=== PATIENT | female | born 1955 | race Caucasian/White ===

== ENCOUNTER → 2017-11-06 11:23 | Outpatient (CLI) | payer OTHER, SELFPAY ==
[2017-11-06 11:39] LABS: Adenovirus,PCR Not Detected (NotDetected); Bordetella Pertussis Not Detected (NotDetected); Chlamydophila Pneumoniae, PCR Not Detected (NotDetected); Coronavirus 229E Not Detected (NotDetected); Coronavirus NL63 Not Detected (NotDetected); Coronavirus OC43 Not Detected (NotDetected); Coronovirus HKU1,PCR Not Detected (NotDetected); Human Metapneumovirus Not Detected (NotDetected); Influenza A, PCR Not Detected (NotDetected); Influenza AH1, 2009 Not Detected (NotDetected); Influenza AH1, PCR Not Detected (NotDetected); Influenza B, PCR Not Detected (NotDetected); Mycoplasma Pneumoniae, PCR Not Detected (NotDected); Parainfluenza 1, PCR Not Detected (NotDetected); Parainfluenza 2, PCR Not Detected (NotDetected); Parainfluenza 3, PCR Not Detected (NotDetected); Parainfluenza 4, PCR Not Detected (NotDetected); Respiratory Syncytial Virus Not Detected (NotDetected); Rhinovirus/Enterovirus Not Detected (NotDetected)
--- NOTE | 2017-11-06 11:46 | XR_ITS ---
XR chest 2V HISTORY: ITS.REASON: FEVER,COUGH ORDERING PHYSICIAN: Yeimi Barber PATIENT AGE: 62 years COMPARISON: None available FINDINGS: The cardiomediastinal silhouette and pulmonary vascularity are within normal limits. No lobar consolidation or collapse. There is hyperinflation with attenuation of the peripheral pulmonary vessels consistent with COPD/small airway disease. There is minimal atelectatic change in the left lung base.. No acute bony abnormalities. IMPRESSION: 1. COPD/small airway disease. 2. Minimal left basilar atelectasis
[2017-11-06 16:46] LABS: Influenza AH3,PCR Detected (NotDetected)
== END ==
PROVIDERS: PCP Nurse Practitioner Family; Visit Provider Nurse Practitioner Family
DX: R50.9 Fever, unspecified (principal); R05 Cough
CPT/HCPCS: 71046; 87486; 87581; 87633; 87798

== ENCOUNTER 2024-03-03 11:17 | Outpatient (CLI) | payer MEDICARE, OTHER, SELFPAY ==
--- NOTE | 2024-03-03 11:21 | XR_ITS ---
FINAL REPORT CLINICAL HISTORY: left sided sciaticax 1 yr COMPARISON: None FINDINGS: 3 views of the lumbar spine were obtained. There is no evidence of fracture. There is 9 mm of anterolisthesis of L5 on S1. Levoscoliosis is noted. There is moderate and severe degenerative change. Multilevel disc space narrowing is noted. No paraspinous soft tissue abnormalities identified. IMPRESSION: Moderate and severe degenerative change without acute bony abnormality. Reviewed, Interpreted and Dictated by Turner Santiago III, MD Transcribed by Trista Hughes Authenticated and [facility]
== END 2024-03-03 23:59 | disposition home or self-care (01) ==
LOC: RAD 11:19
PROVIDERS: PCP Family Medicine; Visit Provider Family Medicine
DX: M54.32 Sciatica, left side (principal)
CPT/HCPCS: 72100

== ENCOUNTER 2024-04-06 16:00 | Outpatient (RCR) | payer MEDICARE, OTHER, SELFPAY ==
--- NOTE | 2024-03-09 11:52 | HMH.PTOPEV ---
PT Outpatient Evaluation Rehab PT Outpatient Evaluation Start: 03/09/24 10:02 Freq: Status: Active Protocol: Document 03/09/24 10:02 PDESEROUX (Rec: 03/09/24 11:52 PDESEROUX [id number]) E-signed By Giovanni Aragon, PT Outpatient Therapy Subjective History Subjective History Pt. is a 68 year old female who presents to [facility] Outpatient Physical Therapy Services in [place] for the initial evaluation this date( 03/09/24) w/ c/o chronic and constant L-sided lumbar and LLE buttock P! and stiffness w / intermittent LLE numbness, tingling, and burning of insidious onset 1 year ago. Pt . reports she was walking for exercise with her friend when initial onset of symptoms began 1 year ago. Pt. reports initally noticing symptoms at a half mile, then quarter mile , currently states having constant symptoms w/ ambulation now. Pt. c/o intermittent LLE numbness/ tingling/burning initial onset 1 month ago. Pt. reports symptoms will progressively get worse as the day goes on. Pt. reports she is unable to ambulate for Health and Wellness, unable to stand and wash dishes/cook supper secondary to the symptomatic P !. Pt. reports having some symptom relief w/ stretches and MHP. Pt. reports having no symptom relief w/ OTC Tylenol . Pt. denies having any injections for current complaint. Recent diagnostic imaging(radiograph) of lumbar spine indicates DDD per pt. report. Pt. denies saddle paresthesia, denies ashley/ bladder dysfunction. Current medication list includes Letrozole, Atorvastatin, Magnesium, Vit. C, Vit. D3, and Pepcid PRN. PMH includes L Breast Lumpectomy in 2020, L- sided Embolization of Dural Fistula, Rhinoplasty, Uvulectomy, LLE Varicose Vein Stripping, Tubal Ligation and Inguinal Hernia Repair, x3 Natural Childbirth, borderline Osteopenia, Lumbar DDD, pre -diabetic. New diagnosis of cancer in past 12 No: see further details in PMH months? sentence above. Chief Complaint Pain,Stiff,Gives out/Unstable, Paresthesia,Weakness,Other Symptom Type Ache,Sharp,Dull,Stabbing, Burning,Numbness,Tingling, Shooting Symptoms Relieved By Rest/Positioning,Heat Symptoms Aggravated By Sitting,Standing,Bending/ Stooping,Physical Activity, Walking Prior Functional Limitations None Current Functional Limitations Lifting,Housework,Sleeping, Standing,Sitting,Recreation Activity,Walking,Bending/ Stooping Symptom Description Constant but Variable,Activity Dependent Level of pain today (0-10) 2 Pain scale - at its best (0-10) 1 Pain scale - at its worst (0-10) 7 Lumbopelvic Eval Posture Lumbar Spine Posture Standing Position Flattened,Fixed Scoliosis on ( L) Assistive device Assistive Devices None / NA Gait Observation General Gait Pattern Observation Antalgic Gait,Decrease Weight Bear (L),Decrease Stride Lngth (R) Palapation tenderness left lumbar spinal tenderness Yes: L4/L5 paraspinal tenderness No buttock tenderness Yes: piriformis mm. Lumbar/Sacral Palpation Findings Tenderness Lumbar/Sacral Palpation Overall Comment grade 4 +TTP to assessment above Accessory Movement L-spine Vertebrae Accessory Movements Central P/A [place],Left P/A that Elicit Symptoms [place] L4 left L5 left Range of Motion Lumbar Spine Active Flexion Range of 74 Motion (degrees) Lumbar Spine Active Extension Range of 18 Motion (degrees) Left Lumbar Spine Lateral Flexion Active 25 Range of Motion (degrees) Right Lumbar Spine Lateral Flexion 24 Active Range of Motion (degrees) Lumbar Spine ROM Limitations Soft Tissue Tightness,Pain Manual Muscle Test Right Knee Extension Strength Grade 5 Normal Knee Flexion Strength Grade 5 Normal Hip Flexion Strength Grade 5 Normal Hip Abduction Strength Grade 5 Normal Hip Adduction Strength Grade 5 Normal Hip External Rotation Strength Grade 5 Normal Hip Internal Rotation Strength Grade 5 Normal Hip Extension Strength Grade 5 Normal Gluteus Eddie Strength Grade 5 Normal Extensor Hallucis Longus Strength Grade 5 Normal Ankle Dorsiflexion Strength Grade 5 Normal Gastronemius/Soleus Strength Grade 5 Normal Left Knee Extension Strength Grade 4- Good- Knee Flexion Strength Grade 4- Good- Hip Flexion Strength Grade 4- Good- Hip Abduction Strength Grade 4- Good- Hip Adduction Strength Grade 4- Good- Hip External Rotation Strength Grade 4- Good- Hip Internal Rotation Strength Grade 4- Good- Hip Extension Strength Grade 4- Good- Gluteus Eddie Strength Grade 4- Good- Extensor Hallucis Longus Strength Grade 4- Good- Ankle Dorsiflexion Strength Grade 4- Good- Gastronemius/Soleus Strength Grade 4- Good- DTR Rt Patellar 2+ Lt Patellar 1+ Rt Gastroc/Soleus 2+ Lt Gastroc/Soleus 0 Altered Sensation Left LE Dermatome Level L4,L5 Comment vocalized decreased light touch sensation in above patterns of LLE compared to RLE Special Tests Lumbar Spine Screen Positive Hip Scouring (Quadrant) Test Negative Left Hip Giovanni (CHARLES) Test Negative Left Hip Piriformis Test Positive Left Sciatic Nerve Tension Test Positive Left Hip 90-90 Straight Leg Raise Test Positive Left Lumbar Long [place] Distraction Test/Manual Positive Traction Outpatient Therapy Assessment Impairments Problems/Impairmments Palpation Tenderness,Impaired Range of Motion,Impaired Strength,Impaired Gait Pattern ,Impaired Walking,Impaired Standing,Impaired Sitting, Impaired Household Care, Impaired Incline Stepping, Impaired Stepping on Uneven Surface,Impaired Recreational Activities,Subjective C/O Pain ,Impaired Self Care/Self Management Prognosis Rehab Potential Good Comment w/ HEP compliancy Clinical Impression Consistent with Diagnosis Yes Consistent with lumbar radiculopathy, L Short Term Goals Number of Weeks 2 Decreased Palpation Tenderness Yes: grade 1-2 +TTP to TTP assessment above Decrease Subjective C/O Pain Yes: worse:03/06 Patient to be Ind w/ HEP Yes Detention Goals Number of Weeks 4-6 Decreased Palpation Tenderness Yes: grade 1 +TTP to TTP assessment above Increase Range of Motion Yes: lumbar AROM WFL in all planes of motion w/o difficulty Increase Strength Yes: 4+ to 5/5 LLE MMT scores grossly Improve Gait Pattern without Assistive Yes Device Increase Ability to Walk Yes Increase Ability to Stand Yes Increase Ability to Sit Yes Improve Ability For Household Care Yes: Pt. will be able to dog and cat food cook, stand and wash dishes w/o difficulty Return to Recreational Activities Yes Improve Oswestry Score Yes Decrease Subjective C/O Pain Yes: worse:-12/07 Improve Self Care/Self Management Yes: Pt. will be able to sleep through the night w/o difficulty Patient to be Ind w/ Advanced HEP Yes Outpatient Therapy Plan of Care Treatment Plan May Include Therapeutic Exercise Including Home Yes Exercise Program Manual Therapy Techniques Yes Neuromuscular Re-education Yes Therapeutic Activities to Return to Yes Previous Functional/Work Level ADL/Self Care Education Yes Mechanical Traction Yes Dry Needling Yes Thermal Modalities Yes Electrical Stimulation Yes Ultrasound/Phonophoresis Yes Iontophoresis Yes Vasopneumatic Compression Pump Yes Massage Yes Eval/Re-Eval Yes Frequency Times per week 2 Duration Number of Weeks 4-6 Addendums This patient is a candidate for social No or vocational rehab? Patient/Guardian verbally acknowledges Yes understanding of treatment program and consents to further treatment? Patient/Guardian verbally acknowledges Yes understanding of diagnosis, prognosis and goals for treatment? Eval Complexity PT Charges 35251 - Moderate Complexity Shoulder/Elbow Eval Shoulder Objective Measurements Elbow Objective Measurements PHYSICIAN CERTIFICATION: I certify the specified therapy services for Cindy Francois are required, authorized, and reviewed every 30 days.
== END 2024-05-18 09:12 | disposition home or self-care (01) ==
LOC: PT 16:00
PROVIDERS: Visit Provider Family Medicine
DX: M54.32 Sciatica, left side; M54.50 Low back pain, unspecified
CPT/HCPCS: 97012; 97014; 97110; 97140; 97163; G0283

== ENCOUNTER 2024-04-17 08:39 | Outpatient (CLI) | payer MEDICARE, OTHER, SELFPAY ==
--- NOTE | 2024-04-17 08:41 | MR_ITS ---
FINAL REPORT TECHNIQUE: Multiplanar MR without gadolinium enhancement CLINICAL HISTORY: low back pain with sciatica COMPARISON: None FINDINGS: Sagittal images show normal vertebral height. There is grade 1 spondylolisthesis of L5 on S1, likely secondary to facet arthropathy. There is minimal bone marrow edema in the L5 pedicles bilaterally, more prominent on the right than on the left, which may reflect stress reaction. L1-2: A small annular bulge is present without evidence of central canal stenosis or neural foraminal narrowing. L2-3: Spondylosis and an annular bulge are present, with moderate right and mild left neural foraminal narrowing. L3-4: Moderate annular bulge is present with facet arthropathy. There is mild central canal stenosis and mild bilateral neural foraminal narrowing. L4-5: A moderate annular bulge is present, asymmetric to the left. There is moderate facet arthropathy, moderate central canal stenosis, and bilateral neural foraminal narrowing. L5-S1: A small annular bulge is present with moderate facet arthropathy and moderate bilateral neural foraminal narrowing. IMPRESSION: Multilevel lumbar degenerative changes present, most severe at the L4-5 level. Reviewed, Interpreted and Dictated by Jarrod Mccormick MD Transcribed by Marisol Coello Authenticated and [facility]
== END 2024-04-17 23:59 | disposition home or self-care (01) ==
LOC: RAD 08:41
PROVIDERS: PCP Family Medicine; Visit Provider Family Medicine
DX: M54.30 Sciatica, unspecified side (principal); M54.50 Low back pain, unspecified
CPT/HCPCS: 72148

== ENCOUNTER 2024-07-14 11:00 | Outpatient (RCR) | payer MEDICARE, OTHER, SELFPAY | END 2024-07-28 11:30 | disposition home or self-care (01) | LOC: PT 11:00 | PROVIDERS: Visit Provider Anesthesiology Pain Medicine | DX: M54.16 Radiculopathy, lumbar region (principal) | CPT/HCPCS: 20560; 97110; 97140; 97163; 97530 ==

== ENCOUNTER 2024-08-21 13:00 | Outpatient (CLI) | payer MEDICARE, OTHER, SELFPAY ==
--- NOTE | 2024-08-21 13:03 | XR_ITS ---
PROCEDURE INFORMATION: Exam: XR Right Hand Exam date and time: 08/21/2024 1:05 PM Age: 69 years old Clinical indication: Pain; Hand; Right; Additional info: Right middle finger pip joint trigger TECHNIQUE: Imaging protocol: Radiologic exam of the right hand. Views: 3 or more views. COMPARISON: No relevant prior studies available. FINDINGS: Bones/joints: . Very subtle small avulsion fracture off the dorsal aspect of the PIP joint of the long finger. It measures 1 mm. Joint space narrowing in the PIP joints and DIP joints of the fingers and IP joint of the thumb consistent with degenerative changes. There is no evidence of acute fracture.There is no evidence of malalignment or dislocation. Soft tissues: Unhealed avulsion fracture off the dorsal lip of the distal phalanx of the long finger. This is seen best on the lateral. There is additional avulsion fracture off the volar aspect of the distal phalanx of the long finger. It appears more chronic. These avulsion fractures involve the D IP joint IMPRESSION: 1. Unhealed avulsion fracture off the dorsal lip of the distal phalanx of the long finger. This is seen best on the lateral. There is additional avulsion fracture off the volar aspect of the distal phalanx of the long finger. It appears more chronic. These avulsion fractures involve the D IP joint . 2. Very subtle small avulsion fracture off the dorsal aspect of the PIP joint of the long finger. It measures 1 mm. 3. Joint space narrowing in the PIP joints and DIP joints of the fingers and IP joint of the thumb consistent with degenerative changes.
== END 2024-08-21 23:59 | disposition home or self-care (01) ==
LOC: RAD 13:02
PROVIDERS: PCP Family Medicine; Visit Provider Family Medicine
DX: M65.30 Trigger finger, unspecified finger (principal)
CPT/HCPCS: 73130

== ENCOUNTER 2025-08-04 08:26 | Outpatient (CLI) | payer MEDICARE, OTHER, SELFPAY ==
--- OUTSIDE RECORDS SUMMARY | 2025-06-24 11:00 | XMS_ITS | Encounter Summary ---
Author Organization [employer] ([place], [place], [place], [place]) Address [address] [place] [address] Care Team Providers Care Applications Instructor Name Role Phone Unique Desai Primary Care Provider Reason for Referral * Mammography (Routine) - Closed Specialty Diagnoses / Procedures Referred By Leigh Ann t Referred To Contact Radiology Diagnoses History of breast cancer Procedures MM digital mammo diagnostic with delta bilateral MM digital mammo diagnostic bilateral Arnold Pelayo MD Phone: tel: fax: [address] [phone] Phone: tel: fax: Referral ID Status Reason Start Date Expiration Date Visits Re quested Visits Authorized [id number] Closed 06/24/2025 06/24/2026 1 1 * Mammography (Routine) - Closed Specialty Diagnoses / Procedures Referred By Contjaime t Referred To Contact Radiology Diagnoses History of breast cancer Procedures MM digital mammo diagnostic with delta bilateral MM digital mammo diagnostic bilateral Arnold Pelayo MD Phone: tel: fax: [address] [phone] Phone: tel: fax: Referral ID Status Reason Start Date Expiration Date Visits Re quested Visits Authorized [id number] Closed 06/24/2025 06/24/2026 1 1 Reason for Visit * Mammography (Routine) - Closed Specialty Diagnoses / Procedures Referred By Contac t Referred To Contact Radiology Diagnoses History of breast cancer Procedures MM digital mammo diagnostic with delta bilateral MM digital mammo diagnostic bilateral Arnold Pelayo MD Phone: tel: fax: [address] [phone] Phone: tel: fax: Referral ID Status Reason Start Date Expiration Date Visits Re quested Visits Authorized [id number] Closed 06/24/2025 06/24/2026 1 1 Encounter Details Date Type Department Care Team (Latest Contact Info) Description 06/24/2025 11:00 AM EDT - 06/24/2025 11:59 PM EDT Hospital Encounter [address] [address] [facility], Provider Not In The System, [place] [address] History of breast cancer (Primary Dx) Discharge Disposition: Home or Self Care Social History Tobacco Use Types Packs/Day Years Used Date Smoking Tobacco: Never Smokeless Tobacco: Never Alcohol Use Standard Drinks/Week Comments Yes 1 (1 standard drink = 0.6 oz pur e alcohol) daily Family and Community Support Answer Amos e Recorded Help with Day to Day Activities Not on file 11/08/2023 Feeling Lonely or Isolated Not on file 11/08 Educational Attainment Answer Date Chaim rded Speak language other than Bruneian at home Not on file 11/08/2023 Want help with school or training Not on file 11/08/2023 Substance Use Answer Date Recorded Used prescription meds for non-medical reasons N ot on file 11/08/2023 Used illegal drugs past 12 months Not on file 11/08/2023 Comments No Sex and Gender Information Value Date Recorded Sex Assigned at Female 02/07/2024 3:45 PM CDT Legal Sex Female 6:13 PM CDT Gender Identity Female 02/07/2024 3:45 PM CDT Sexual Orientation Straight 02/07/2024 3: 45 PM CDT documented as of this encounter Medications at Time of Discharge acetaminophen (TYLENOL) 650 MG CR tablet Take 1 tablet (650 mg total) by mouth. ascorbic acid, vitamin C, (VITAMIN C) 500 MG tablet Take 1 tablet (500 mg total) by mouth. calcium carbonate/vitami n D3 (CALTRATE 600 + D ORAL) 10/15/2023 calcium carbonate/vitami n D3 (CALTRATE 600 + D ORAL) Take by mouth. cholecalciferol (VITAMIN D3) 25 mcg (1,000 unit) tablet Take 1 tablet (1,000 Units total) by mouth. DULoxetine (CYMBALTA) 20 MG capsule Take 1 capsule (20 mg total) by mouth daily. 06/03/2024 letrozole (FEMARA) 2.5 mg tablet TAKE 1 TABLET DAILY 90 tablet 3 01/06/2025 magnesium gluconate (MAGONATE) 27.5 mg magne- sium (500 mg) tablet Take 1 tablet (500 mg total) by mouth 2 (two) times daily. magnesium gluconate, bulk, Powd Take 400 mg by mouth. melatonin 3 mg tablet Take 1 tablet (3 mg total) by mouth Pt takes 1.5tab at hs. turmeric, bulk, 95 % Powd 09/27/2023 UNKNOWN Take 1 tablet by mouth daily Med Name: Nerve health supplement ( folic acid, B12, B6). omeprazole (PriLOSEC) 10 MG capsule Take 1 capsule (10 mg total) by mouth daily. omeprazole (PriLOSEC) 40 MG capsule Take 1 capsule (40 mg total) by mouth Daily (0600). documented as of this encounter Plan of Treatment Upcoming Encounters Date Type Department Care Team (Late st Contact Info) Description 06/27/2026 1:00 PM EDT Appointment [facility] Breast Imaging [address] [place] [phone] Jamarcus Issa MD [address] [facility] [address] [place] [address] 06/30/2026 10:00 AM EDT Office Visit [facility] [place] [address] [place] [address] Jamarcus Issa MD [address] [facility] [address] [place] [address] documented as of this encounter Procedures Procedure Name Priority Date/Time Associated Diagnosis Comments MM DIGITAL MAMMO DIAGNOSTIC WITH DELTA BILATERAL Routine 06/24/2025 11:51 AM EDT History of breast cancer documented in this encounter Results * MM digital mammo diagnostic with delta bilateral (06/24/2025 11:51 AM EDT) Anatomical Region Laterality Modality Breast Bilateral Mammography 06/24/2025 12:0 2 PM EDT Impressions 06/24/2025 12:04 PM EDT Stable mammographic evaluation without evidence of malignancy Nothing seen by mammogram or ultrasound to explain the patient's breast pain/tenderness any: This will have to managed clinically.. BI-RADS category 2: Benign RECOMMENDATION: Bilateral diagnostic mammogram 1 year. The results and recommendations were discussed with the patient on the day of her appointment. In addition, a written report in lay terms was given to the patient. Patient information entered into a reminder system with a target due date for the next mammogram. At our facility, a blackfeet marker is positioned over a visible skin lesion and a linear marker is used to indicate a scar. A triangular marker is placed on a self reported palpable finding. Mammography does not detect approximately 10-15% of breast cancers. An annual clinical breast exam by the patient's breast care physician and regular monthly self breast exams by the patient are integral parts of breast cancer screening. A normal mammogram does not completely exclude the presence of breast cancer, especially if there is an abnormal finding on physical exam. When clinically indicated, a biopsy should not be deferred because of a normal mammogram report. : 1955 Images reviewed, interpreted, and dictated by Yuki Darnell MD Narrative 06/24/2025 12:04 PM EDT MAMMOGRAM DIAGNOSTIC BILATERAL HISTORY: Status post lumpectomy upper-outer quadrant left breast and September 2021, no current problems. FAMILY HISTORY: No family history. COMPARISON: Previous exams back to 2021. PROCEDURE: MM DIGITAL MAMMO DIAGNOSTIC WITH DELTA BILATERAL CAD was utilized during interpretation. FINDINGS: The breasts are heterogeneously dense, which may obscure small masses.No spiculated mass, suspicious calcifications or new area of architectural distortion is present. Post lumpectomy change again noted upper outer quadrant left breast with one associated metallic surgical clips. 2 additional surgical clips noted in the left axilla. Findings are stable. Procedure Note Yuki Darnell MD - 06/24/2025 MAMMOGRAM DIAGNOSTIC BILATERAL HISTORY: Status post lumpectomy upper-outer quadrant left breast and September 2021, no current problems. FAMILY HISTORY: No family history. COMPARISON: Previous exams back to 2021. PROCEDURE: MM DIGITAL MAMMO DIAGNOSTIC WITH DELTA BILATERAL CAD was utilized during interpretation. FINDINGS: The breasts are heterogeneously dense, which may obscure small masses.No spiculated mass, suspicious calcifications or new area of architectural distortion is present. Post lumpectomy change again noted upper outer quadrant left breast with one associated metallic surgical clips. 2 additional surgical clips noted in the left axilla. Findings are stable. IMPRESSION: Stable mammographic evaluation without evidence of malignancy Nothing seen by mammogram or ultrasound to explain the patient's breast pain/tenderness any: This will have to managed clinically.. BI-RADS category 2: Benign RECOMMENDATION: Bilateral diagnostic mammogram 1 year. The results and recommendations were discussed with the patient on the day of her appointment. In addition, a written report in lay terms was given to the patient. Patient information entered into a reminder system with a target due date for the next mammogram. At our facility, a blackfeet marker is positioned over a visible skin lesion and a linear marker is used to indicate a scar. A triangular marker is placed on a self reported palpable finding. Mammography does not detect approximately 10-15% of breast cancers. An annual clinical breast exam by the patient's breast care physician and regular monthly self breast exams by the patient are integral parts of breast cancer screening. A normal mammogram does not completely exclude the presence of breast cancer, especially if there is an abnormal finding on physical exam. When clinically indicated, a biopsy should not be deferred because of a normal mammogram report. : 1955 Images reviewed, interpreted, and dictated by Yuki Darnell MD Arnold Pelayo MD IMG MAMMOGRAPHY ORDERABLES F inal Result documented in this encounter Visit Diagnoses Diagnosis History of breast cancer- Primary Personal history of malignant neoplasm of breast documented in this encounter Care Teams Applications Instructor Relationship Specialty Start Date End Date Unique Desai [address] [facility] [place] [phone] PCP - General 06/10/23 documented as of this encounter
--- OUTSIDE RECORDS SUMMARY | 2025-06-24 11:45 | XMS_ITS | Encounter Summary ---
Author Organization [employer] ([place], [place], [place], [place]) Address [address] [place] [address] Care Team Providers Care Company Pilot Name Role Phone Unique Desai Primary Care Provider [phone] Reason for Visit * Reason Comments Follow-up DIAGNOSTIC MAMMOGRAM Encounter Details Date Type Department Care Team (Late st Contact Info) Description 06/24/2025 11:45 AM EDT Office Visit [facility] [address] [facility] [address] [place] [id number] [facility], Provider Not In The System, [place] [address] Arnold Pelayo MD [address] [facility] [address] [place] [address] History of breast cancer (Primary Dx) Social History Tobacco Use Types Packs/Day Years Used Date Smoking Tobacco: Never Smokeless Tobacco: Never Tobacco Cessation:Counseling Given: Not Answered Alcohol Use Standard Drinks/Week Comments Yes 1 (1 standard drink = 0.6 oz pur e alcohol) daily Family and Community Support Answer Amos e Recorded Help with Day to Day Activities Not on file 11/08/2023 Feeling Lonely or Isolated Not on file 11/08 Educational Attainment Answer Date Chaim rded Speak language other than Amharic at home Not on file 11/08/2023 Want [...] PM CDT documented as of this encounter Progress Notes * Arnold Pelayo MD - 06/24/2025 11:45 AM EDT Subjective: Cindy Francois is a 70 y.o. female. Chief Complaint Patient presents with Follow-up DIAGNOSTIC MAMMOGRAM I have reviewed and/or updated the following: HPI Ms. Francois is now 5 years status post left lumpectomy and sentinel node biopsy. She had a bilateral mammogram today which was unremarkable. I reviewed the images. She continues to do well and remains on letrozole. Review of Systems All other systems reviewed and are negative. Objective: LMP (LMP Unknown) Physical Exam Breast exam reveals well-healed lumpectomy incision(s) on the left without evidence of recurrence. There are no new masses or adenopathy. Examination of the right breast is unremarkable. Assessment: 1. History of breast cancer Plan: I am pleased that she continues to do well. Unless she develops any new problems or concerns I can see her back as needed. She will need to return to the breast center in 1 year for her next bilateral screening mammogram. No follow-ups on file. documented in this encounter Plan of Treatment Upcoming Encounters Date Type Department Care Team (Late st Contact Info) Description 06/27/2026 1:00 PM EDT Appointment [facility] [address] [place] [address] Jamarcus Issa MD [address] [facility] [address] [place] [address] 06/30/2026 10:00 AM EDT Office Visit [facility] [place] [address] [facility] [address] [place] [address] Jamarcus Issa MD [address] [facility] [address] [place] [address] documented as of this encounter Visit Diagnoses Diagnosis History of breast cancer- Primary Personal history of malignant neoplasm of breast documented in this encounter Care Teams Company Pilot Relationship Specialty Start Date End Date Unique Desai [address] [place] [address] [place] [address] PCP - General 06/10/23 documented as of this encounter
--- OUTSIDE RECORDS SUMMARY | 2025-06-30 10:15 | XMS_ITS | Encounter Summary ---
Author Organization [employer] ([place], [place], [place], [place]) Address [address] [place] [address] Care Team Providers Care Software Analyst Name Role Phone GuevaraAparna serna Primary Care Provider [phone] Reason for Referral * Mammography (Routine) - Authorized Specialty Diagnoses / Procedures Referred By Leigh Ann jackson Referred To Contact Radiology Diagnoses Malignant neoplasm of upper-outer quadrant of left breast in female, estrogen receptor positive (HCC) Procedures MM digital mammo screen with delta bilateral Jamarcus Issa MD [address] [facility] [address] [place] [address] Phone: tel: fax: [facility] [address] [place] [address] Phone: tel: fax: Referral ID Status Reason Start Date Expiration Date V isits Requested Visits Authorized [id number] Authorized 06/30/2025 06/30/2026 1 1 Reason for Visit * Reason Comments Follow-up Breast Cancer Encounter Details Date Type Department Care Team (Late st Contact Info) Description 06/30/2025 10:15 AM EDT Office Visit [facility] [place] [address] [place] [address] Jamarcus Issa MD [address] [facility] [address] [place] [address] Malignant neoplasm of upper-outer quadrant of left breast in female, estrogen receptor positive (HCC) (Primary Dx) Social History Tobacco Use Types [...] Date Chaim rded Speak language other than Sudanese at home Not on file 11/08/2023 Want [...] PM CDT documented as of this encounter Last Filed Vital Signs Vital Sign Reading Time Taken Comments Blood Pressure 121/62 06/30/2025 10:15 AM EDT Pulse 64 06/30/2025 10:15 AM EDT Temperature 36.7 C (98 F) 06/30/2025 10:15 AM EDT Respiratory Rate 18 06/30/2025 10:15 AM EDT Oxygen Saturation 99% 06/30/2025 10:15 AM EDT Inhaled Oxygen Concentration - - Weight 61.9 kg (136 lb 6.4 oz) 06/30/2025 10:15 AM EDT Height 170.2 cm (5' 7 ) 06/30/2025 10:15 AM EDT Body Mass Index 21.36 06/30/2025 10:15 AM EDT documented in this encounter Progress Notes * Jamarcus Issa MD - 06/30/2025 10:15 AM EDT Chief Complaint: History of Present Illness: Cindy Francois is a 70 y.o. female who presents today for follow up of breast cancer. She is nearing 4 years from her diagnosis. She denies any new issues. She has had no change in the left breast.She has had recent mammogram. She is tolerating the letrozole well without new complaints Past Medical History: Diagnosis Date Breast cancer (HCC) Hypercholesterolemia Past Surgical History: Procedure Laterality Date CEREBRAL EMBOLIZATION 11/2020 dura fistula nasal rhinoplasty UVULECTOMY varicose vein surgery Cancer History: Oncology History Malignant neoplasm of upper-outer quadrant of left breast in female, estrogen receptor positive (HCC) 11/23/2022 Initial Diagnosis Malignant neoplasm of upper-outer quadrant of left breast in female, estrogen receptor positive (HCC) 08/2021 Lumpectomy of 1.1 cm primary and negative SN Letrozole 10/2021- RT 15 fractions 11/202106/09/2023 Cancer Staged Staging form: Breast, AJCC 8th Edition, Clinical: Stage IA (cT1c, cN0, cM0, G1, ER+, NE+, HER2-) - Signed by Jamarcus Issa MD on 06/09/2023 Allergies: Metoprolol Tartrate and Sulfa (Sulfonamide Antibiotics) Medications: Current Outpatient Medications on File Prior to Visit Medication Sig Dispense Refill acetaminophen (TYLENOL) 650 MG CR tablet Take 1 tablet (650 mg total) by mouth. ascorbic acid, vitamin C, (VITAMIN C) 500 MG tablet Take 1 tablet (500 mg total) by mouth. calcium carbonate/vitamin D3 (CALTRATE 600 + D ORAL) Take by mouth. DULoxetine (CYMBALTA) 20 MG capsule Take 1 capsule (20 mg total) by mouth daily. letrozole (FEMARA) 2.5 mg tablet TAKE 1 TABLET DAILY 90 tablet 3 magnesium gluconate (MAGONATE) 27.5 mg magne- sium (500 mg) tablet Take 1 tablet (500 mg total) by mouth 2 (two) times daily. melatonin 3 mg tablet Take 1 tablet (3 mg total) by mouth Pt takes 1.5tab at hs. turmeric, bulk, 95 % Powd UNKNOWN Take 1 tablet by mouth daily Med Name: Nerve health supplement ( folic acid, B12, B6). calcium carbonate/vitamin D3 (CALTRATE 600 + D ORAL) cholecalciferol (VITAMIN D3) 25 mcg (1,000 unit) tablet Take 1 tablet (1,000 Units total) by mouth. magnesium gluconate, bulk, Powd Take 400 mg by mouth. [DISCONTINUED] omeprazole (PriLOSEC) 10 MG capsule Take 1 capsule (10 mg total) by mouth daily. [DISCONTINUED] omeprazole (PriLOSEC) 40 MG capsule Take 1 capsule (40 mg total) by mouth Daily (0600). No current facility-administered medications on file prior to visit. Review of Systems: Review of Systems All other systems reviewed and are negative. Vitals: Vitals: 06/30/25 1015 BP: 121/62 Pulse: 64 Resp: 18 Temp: 98 ??F (36.7 ??C) TempSrc: Temporal Artery SpO2: 99% Weight: 61.9 kg (136 lb 6.4 oz) Height: 1.702 m (5' 7 ) Physical Exam: Physical Exam Vitals reviewed. Constitutional: Appearance: Normal appearance. HENT: Head: Normocephalic and atraumatic. Mouth/Throat: Mouth: Mucous membranes are moist. Pharynx: Oropharynx is clear. Eyes: Extraocular Movements: Extraocular movements intact. Conjunctiva/sclera: Conjunctivae normal. Pupils: Pupils are equal, round, and reactive to light. Neck: Comments: No cervical supraclavicular or axillary adenopathy Cardiovascular: Rate and Rhythm: Normal rate and regular rhythm. Pulses: Normal pulses. Heart sounds: Normal heart sounds. Pulmonary: Effort: Pulmonary effort is normal. Breath sounds: Normal breath sounds. Comments: No dullness to percussion in the lung bases. She has a well-healed incision in the outer lower quadrant of the left breast with no induration mass or lesion. Right breast without palpable abnormalities Abdominal: General: Abdomen is flat. Bowel sounds are normal. Palpations: Abdomen is soft. Comments: No hepatomegaly below the right costal margin Musculoskeletal: General: Normal range of motion. Cervical back: Normal range of motion and neck supple. Comments: No areas of bone pain Neurological: General: No focal deficit present. Mental Status: She is alert. Mental status is at baseline. Comments: No deficits Relevant Results: No visits with results within 21 Day(s) from this visit. Latest known visit with results is: Historic Encounter on 10/23/2021 Component Date Value Ref Range Status SARS-CoV-2 ([id number]) 10/23/2021 Negative Negative Final Comment: Testing was performed using RT-PCR methodology approved for use under FDA Emergency Use Authorization only. Negative results do not preclude infection with the SARS-CoV-2 virus and should not be used as the sole basis of a patient treatment or public health decisions. Negative results must be considered in the context of an individual's recent exposures, history, and presence of clinical signs/symptoms. Follow-up testing should be performed according to the current CDC recommendations. Performing Lab: 10/23/2021 [facility] Max Final Reason for Testing 10/23/2021 Surveillance Intake Final First Test 10/23/2021 No Final Employed in Healthcare 10/23/2021 Unknown Final Symptomatic as defined by CDC 10/23/2021 No Final Resident in congregate setting 10/23/2021 Unknown Final 10/23/2021 No Final Hospitalized 10/23/2021 No Final ICU 10/23/2021 No Final MM digital mammo diagnostic with delta bilateral Result Date: 06/24/2025 MAMMOGRAM DIAGNOSTIC BILATERAL HISTORY: Status post lumpectomy upper-outer quadrant left breast andDecember 2020, no current problems. FAMILY HISTORY: No family [...] in the left axilla. Findings are stable. Stable mammographic evaluation without evidence of malignancy Nothing seen by mammogram or ultrasound to explain the patient's breast pain/tenderness any: This will have to managed clinically.. BI-RADS category 2: Benign RECOMMENDATION: Bilateral diagnostic mammogram 1 year. The results and recommen dations were discussed with the patient on the day of her appointment. In addition, a written report in lay terms was given to the patient. Patient information entered into a reminder system with a target due date for the next mammogram. At our facility, a [place] marker is positioned over a visibleskin lesion and a linear marker is used to indicate a scar. A triangular marker is placed on a selfreported palpable finding. Mammography does not detect approximately [...] interpreted, and dictated by Yuki Darnell MD Cancer Staging Malignant neoplasm of upper-outer quadrant of left breast in female, estrogen receptor positive (HCC) Staging form: Breast, AJCC 8th Edition - Clinical: Stage IA (cT1c, cN0, cM0, G1, ER+, NE+, HER2-) - Signed by Jamarcus Issa MD on 06/09/2023 Plan: Her mammogram was great. She will continue on the letrozole. I will see her in a year. I haveanswered her questions. Overall she is doing great Signed: Electronically signed by Jamarcus Issa MD 06/30/25 12:40 PM EDT APARNA DESAI documented in this encounter Plan of Treatment Upcoming Encounters Date Type Department Care Team (Late st Contact Info) Description 06/27/2026 1:00 PM EDT Appointment [facility] [address] [place] [address] [place] [address] [place] [address] 06/30/2026 10:00 AM EDT Office Visit [facility] [place] [address] [place] [address] Jamarcus Issa MD [address] [facility] [address] [place] [address] Scheduled Orders Name Type Priority Associated Diagnoses Orde r Schedule MM digital mammo screen with delta bilateral Imaging Routine Malignant neoplasm of upper-outer quadrant of left breast in female, estrogen receptor positive (HCC) Expected: 06/30/2025, Expires: 07/30/2026 documented as of this encounter Visit Diagnoses Diagnosis Malignant neoplasm of upper-outer quadrant of left breast in female, estrogen receptor positive (HCC)- Primary documented in this encounter Care Teams Software Analyst Relationship Specialty Start Date End Date Aparna Desai [address] [facility] [place] [address] PCP - General 06/10/23 documented as of this encounter
[2025-08-04 19:41] LABS: Hematocrit 41.7 % (37.0-47.0); Hemoglobin 13.1 g/dL (12.2-16.2); Immature Granulocytes % 0.2 %; Mean Corpuscular HGB Conc 31.4 g/dL (31.8-35.4); Mean Corpuscular Hemoglobin 30.0 pg (27.0-31.2); Mean Corpuscular Volume 95.6 fl (81-99); Nucleated Red Blood Cells % 0 %; Platelet Count 257 K/mm3 (142-424); Red Blood Count 4.36 M/mm3 (4.20-5.40); Red Cell Distribution Width-SD 46.8 fL; White Blood Count 5.6 K/mm3 (4.8-10.8)
[2025-08-04 21:05] LABS: Alanine Aminotransferase 16 U/L (12-78); Albumin Level 4.4 g/dl (3.5-5.0); Albumin/Globulin Ratio 1.8 (1.1-1.8); Alkaline Phosphatase 75 U/L (38-126); Anion Gap 15.7 mEq/L (5-15); Aspartate Amino Transferase 24 U/L (14-36); Bilirubin,Total 0.8 mg/dl (0.2-1.3); Blood Urea Nitrogen 20 mg/dl (7-17); Calcium 9.7 mg/dl (8.4-10.2); Carbon Dioxide 29 mmol/L (22.0-30.0); Chloride 99 mmol/L (98-107); Cholesterol 197 mg/dl (140-200); Creatinine,Serum 0.80 mg/dl (0.52-1.04); Estimated Glomerular Filt Rate 71 ml/min (>60); GFR (African American) 86 ML/MIN (>60); Globulin 2.5 g/dL (1.3-3.2); Glucose 66 mg/dl (74-100); HDL Cholesterol 58 mg/dl (40-60); Magnesium 2.6 mg/dl (1.6-2.3); Potassium 4.7 mmoL/L (3.5-5.1); Sodium 139 mmol/L (136-145); Total Protein,Serum 6.9 g/dl (6.3-8.2); Triglycerides 101 mg/dl (30-150)
[2025-08-04 21:35] LABS: Thyroid Stimulating Hormone 2.86 uIU/mL (0.465-4.68)
[2025-08-04 23:48] LABS: Iron 100 ug/dL (37-170)
[2025-08-04 23:57] LABS: Total Iron Binding Capacity 316 ug/dL (265-497)
[2025-08-05 00:24] LABS: Ferritin 85.6 ng/ml (11.1-264)
--- OUTSIDE RECORDS SUMMARY | 2025-08-06 01:25 | XMS_ITS | Clinical Summary ---
Author Organization [employer] ([place], [place], [place], [place]) Address [address] [place] [address] Care Team Providers Care Ios Developer Name Role Phone Unique Desai Primary Care Provider Allergies Active Allergy Reactions Criticality Noted Date Comments Metoprolol Tartrate 11/23/2022 Severe bradycardia Sulfa (Sulfonamide Antibiotics) Rash Low 10/29 Medications acetaminophen (TYLENOL) 650 MG CR tablet Take 1 tablet (650 mg total) by mouth. Active magnesium gluconate, bulk, Powd Take 400 mg by mouth. Active ascorbic acid, vitamin C, (VITAMIN C) 500 MG tablet Take 1 tablet (500 mg total) by mouth. Active cholecalciferol (VITAMIN D3) 25 mcg (1,000 unit) tablet Take 1 tablet (1,000 Units total) by mouth. Active melatonin 3 mg tablet Take 1 tablet (3 mg total) by mouth Pt takes 1.5tab at hs. Active calcium carbonate/vitam in D3 (CALTRATE 600 + D ORAL) 3 Active DULoxetine (CYMBALTA) 20 MG capsule Take 1 capsule (20 mg total) by mouth daily. 4 Active turmeric, bulk, 95 % Powd 3 Active calcium carbonate/vitam in D3 (CALTRATE 600 + D ORAL) Take by mouth. A ctive magnesium gluconate (MAGONATE) 27.5 mg magne- sium (500 mg) tablet Take 1 tablet (500 mg total) by mouth 2 (two) times daily. Active UNKNOWN Take 1 tablet by mouth daily Med Name: Nerve health supplement ( folic acid, B12, B6). Active letrozole (FEMARA) 2.5 mg tablet TAKE 1 TABLET DAILY 90 tablet 3 Active Active Problems Problem Noted Date Diagnosed Date Malignant neoplasm of upper- outer quadrant of left breast in female, estrogen receptor positive 11/23/2022 Cancer Staging:Clinical:Stage IA(cT1c, cN0, cM0, G1, ER+, LA+, HER2-) - Signed by Jamarcus Issa MD on 06/09/2023 Encounters Date Type Department Care Team Description 06/30/2025 10:15 AM EDT Office Visit [facility] - [address] [place] [address] Jamarcus Issa MD Malignant neoplasm of upper-outer quadrant of left breast in female, estrogen receptor positive (HCC) (Primary Dx) 06/30/2025 Outside Orders [facility] Central Scheduling [address] [place] [id number] Jamarcus Issa MD 06/30/2025 Travel 06/24/2025 11:45 AM EDT Office Visit [facility] [address] [address] [facility], Provider Not In The System, Arnold Almodovar MD History of breast cancer (Primary Dx) 06/24/2025 11:00 AM EDT - 06/24/2025 11:59 PM EDT Hospital Encounter [facility] [address] [facility] [address] [place] [address] [facility], Provider Not In The System, History of breast cancer (Primary Dx) Discharge Disposition: Home or Self Care 06/24/2025 Travel from Last 3 Months Family History Medical History Relation Name Comments Colon cancer Father Brain cancer Mother Uterine cancer Mother Relation Name Status Comments Father Mother Social History Tobacco Use Types Packs/Day Years [...] Date Chaim rded Speak language other than [place] Islander at home Not on file 11/08/2023 Want [...] Orientation Straight 02/07/2024 3: 45 PM CDT Last Filed Vital Signs Vital Sign Reading [...] Mass Index 21.36 06/30/2025 10:15 AM EDT Plan of Treatment Upcoming Encounters Date Type Department Care Team (Late st Contact Info) Description 06/27/2026 1:00 PM EDT [facility]ointment [facility] [address] [place] [address] [facility]a [facility] [address] [facility] [address] [place] [address] 06/30/2026 10:00 AM EDT Office Visit [facility] [place] [address] [place] [address] Jamarcus Issa MD [address] [facility] [address] [place] [address] Health Maintenance Due Date Last Done Comments Medicare Initial AWV [id number] 10/29/1901 CT Colonography 1955 Colonoscopy 1955 Colorectal Cancer Screening 1955 DXA SCAN 1955 FOBT/FIT 1955 Fit-DNA (Cologuard) 1955 Sigmoidoscopy 1955 Depression Screening (12+) 1967 Hepatitis C Screening 1973 DTAP/TDAP/TD VACCINES (1 - Tdap) 1974 Shingles Vaccine (Zoster) (1 of 2) 2005 Respiratory Syncytial Virus (RSV) Adult or (1 - Risk 60-74 years 1-dose series) 2015 Pneumococcal 50+ years (2 of 2 - PCV) 08/15/2022 08/15/2021 Falls Risk Screening 10/28/2024 COVID-19 VACCINE (6 - 2024-2 6 season) 2025 07/17/2022, 03/06/2022, 09/28/2021, Additional history exists Influenza Vaccine (#1) 2025 , 08/25/2020, 10/03/2018 Tobacco Cessation Counseling and Screening (12+) 06/30/2026 06/30/2025 Breast Cancer Screening 06/24/2027 06/24/20, 06/18/2024, 06/10/2023 Procedures Procedure Name Priority Date/Time Associated Diagnosis Comments MM DIGITAL MAMMO DIAGNOSTIC WITH DELTA BILATERAL Routine 06/24/2025 11:51 AM EDT History of breast cancer from Last 3 Months Results * MM digital mammo diagnostic with [...] the next mammogram. At our facility, a [place] marker is positioned over a visible skin [...] the next mammogram. At our facility, a [place] marker is positioned over a visible skin [...] MD IMG MAMMOGRAPHY ORDERABLES F inal Result from Last 3 Months Insurance MEDICARE PART A B [facility] Advance Directives For more information, please contact: [phone] Documents on File Type Date Recorded Patient Special Ed Assistant Expl anation Advance Directives and Livin g Will 06/24/2025 11:10 AM Care Teams Ios Developer Relationship Specialty Start Date End Date Unique Desai [address] [place] [address] Dr. [place], [place] [address] PCP - General 06/10/23
--- OUTSIDE RECORDS SUMMARY | 2025-08-06 01:25 | XMS_ITS | Encounter Summary ---
[facility] Address [address] [place] [address] Care Team Providers Care Senior Java Developer Name Role Phone Lupillo Ramos MD Primary Care Provider [phone] Reason for Visit * Reason Comments Med Refill Encounter Details Date Type Department Care Team (Late st Contact Info) Description 06/15/2025 Refill [facility] [address] [address] Trista Centeno, SPOOL CLEANER HAND [address] [place] [address] Lumbar radiculopathy Social History Tobacco Use Types Packs/Day Years Used Date Smoking Tobacco: Never Smokeless Tobacco: Never Alcohol Use Standard Drinks/Week Comments Yes 5 (1 standard drink = 0.6 oz pur e alcohol) Not at the same time! PHQ-2 Answer Date Recorded Patient Health Questionnaire-2 Score 0 03/15/2025 Comments No Sex and Gender Information Value Date Recorded Sex Assigned at Female 03/08/2025 7:29 AM EDT Legal Sex Female 1:05 PM EST Gender Identity Not on file Sexual Orientation Straight 03/08/2025 7: 29 AM EDT documented as of this encounter Plan of Treatment Not on file documented as of this encounter Visit Diagnoses Diagnosis Lumbar radiculopathy Thoracic or lumbosacral neuritis or radiculitis, unspecified documented in this encounter Care Teams Senior Java Developer Relationship Specialty Start Date End Date Lupillo Ramos MD [address] [place] [address] [place] [address] PCP - General Family Medicine 04/27/24 documented as of this encounter
--- OUTSIDE RECORDS SUMMARY | 2025-08-06 01:25 | XMS_ITS | Encounter Summary ---
Author Organization [employer] ([place], [place], [place], [place]) Address [address] [place] [address] Care Team Providers Care Senior Tableau Developer Name Role Phone Unique Desai Primary Care Provider [phone] Encounter Details Date Type Department Care Team (Late st Contact Info) Description 06/30/2025 Outside Orders [facility] Central Scheduling [address] [place] [address] Jamarcus Issa MD [address] [facility] [address] [place] [address] Social History Tobacco Use Types Packs/Day Years [...] Date Chaim rded Speak language other than Georgian at home Not on file 11/08/2023 Want [...] PM CDT documented as of this encounter Plan of Treatment Upcoming Encounters Date Type Department Care Team (Late st Contact Info) Description 06/27/2026 1:00 PM EDT Appointment [facility] [address] [place] [address] Jamarcus Issa MD [address] [facility] [address] [place] [address] 06/30/2026 10:00 AM EDT Office Visit [facility] [place] [address] [place] [address] Jamarcus Issa MD [address] [facility] [address] [place] [address] documented as of this encounter Visit Diagnoses Not on filedocumented in this encounter Care Teams Senior Tableau Developer Relationship Specialty Start Date End Date Unique Desai [address] [facility] [place] [address] PCP - General 06/10/23 documented as of this encounter
--- OUTSIDE RECORDS SUMMARY | 2025-08-06 01:25 | XMS_ITS | Referral Summary ---
Author Organization [email or web address] ([place], [place], [place], [place]) Address [address] [place] [address] Care Team Providers Care Food Mixer Assembler Name Role Phone Unique Desai Primary Care Provider [phone] Encounters Date Type Department Care Team Description 06/30/2025 Outside Orders [facility] Scheduling [address] [place] [id number] Jamarcus Issa MD 06/30/2025 Travel 06/30/2025 10:15 AM EDT Office Visit [facility] - [address] [place] [address] Jamarcus Issa MD Malignant neoplasm of upper-outer quadrant of left breast in female, estrogen receptor positive (HCC) (Primary Dx) 06/24/2025 Travel 06/24/2025 11:45 AM EDT Office Visit [facility] [address] [place] [phone] [facility], Provider Not In The System, Arnold Almodovar MD History of breast cancer (Primary Dx) 06/24/2025 11:00 AM EDT - 06/24/2025 11:59 PM EDT Hospital Encounter [facility] [address] [place] [phone] [facility], Provider Not In The System, History of breast cancer (Primary Dx) Discharge Disposition: Home or Self Care from Last 3 Months Allergies Active Allergy Reactions Criticality Noted Date [...] TAKE 1 TABLET DAILY 90 tablet 3 5 Active Active Problems Problem Noted Date Diagnosed Date Malignant neoplasm of upper- outer quadrant of left breast in female, estrogen receptor positive 11/23/2022 Cancer Staging:Clinical:Stage IA(cT1c, cN0, cM0, G1, ER+, VT+, HER2-) - Signed by Jamarcus Issa MD on 06/09/2023 Social History Tobacco Use Types Packs/Day Years [...] Date Chaim rded Speak language other than Turkish at home Not on file 11/08/2023 Want [...] Info) Description 06/27/2026 1:00 PM EDT Appointment [facility] [address] [place] [address] Jamarcus Issa MD [address] [facility] [address] [place] [address] 06/30/2026 10:00 AM EDT Office Visit [facility] - [place] [address] [facility] [address] [place] [address] Jamarcus Issa MD [address] [facility] [address] [place] [address] Procedures Procedure Name Priority Date/Time Associated Diagnosis [...] the next mammogram. At our facility, a chickahominy indians-eastern division marker is positioned over a visible skin [...] the next mammogram. At our facility, a chickahominy indians-eastern division marker is positioned over a visible skin [...] 3 Months Insurance [place]IC[place] [address] [place] [address] SUPP Advance Directives For more information, please contact: [phone] Documents on File Type Date Recorded Patient Butadiene Converter Utility Operator Expl anation Advance Directives and Livin g Will 06/24/2025 11:10 AM Care Teams Food Mixer Assembler Relationship Specialty Start Date End Date Unique Desai [address] [place] [address] [place] [address] PCP - General 06/10/23
--- OUTSIDE RECORDS SUMMARY | 2025-08-06 01:25 | XMS_ITS | Clinical Summary ---
[facility] Organization [facility] Address [address] [place] [address] Care Team Providers Care Optical Instrument Assembly Supervisor Name Role Phone Lupillo Ramos MD Primary Care Provider [phone] Allergies Active Allergy Reactions Criticality Noted Date Comments Metoprolol Other (See Comments) Medium 09/19/2020 LOW HEART RATE Sulfa Antibiotics Rash Low 09/19/2020 Medications MAGNESIUM GLUCONATE PO Take 400 mg by mouth 2 (Two) Times a Day. Active acetaminophen (TYLENOL) 650 MG 8 hr tablet Take 1 tablet by mouth Every 8 (Eight) Hours As Needed for Mild Pain. Active letrozole (FEMARA) 2.5 MG tablet Take 1 tablet by mouth Daily. 12/11/19 24 Active melatonin 1 MG tablet Take 1.5 tablets by mouth At Night As Needed for Sleep. Active Dietary Management Product (Rheumate) capsuleIndication s:Lumbar radiculopathy Take 1 capsule by mouth Daily. 90 capsule 1 06/03/20 24 Active Alpha Lipoic Acid 200 MG capsuleIndication s:Lumbar radiculopathy Take 400 mg by mouth 3 (Three) Times a Day. 180 capsule 1 06/03/20 24 Active atorvastatin (LIPITOR) 20 MG tablet 03/03/20 25 Active omeprazole (priLOSEC) 40 MG capsule Take 1 capsule by mouth. Active DULoxetine (CYMBALTA) 20 MG capsuleIndication s:Lumbar radiculopathy TAKE 1 CAPSULE BY MOUTH EVERY DAY 30 capsule 07/19/20 25 Active DULoxetine (CYMBALTA) 20 MG capsuleIndication s:Lumbar radiculopathy TAKE 1 CAPSULE BY MOUTH EVERY DAY 30 capsule 06/15/20 25 025 Discontinued Active Problems Problem Noted Date Diagnosed Date Lumbar stenosis with neurogenic claudication 01/2024 Spondylosis of lumbar region without myelopathy or radiculopathy 05/31/2024 Degeneration of lumbar or lumbosacral interverte bral disc 05/31/2024 Gait disturbance 05/31/2024 Physical deconditioning 05/31/2024 Spondylolisthesis of lumbar region 05/31/2024 Lumbar radiculopathy 05/31/2024 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 (09/19/2020): Added automatically from request for surgery [id number] Encounters Date Type Department Care Team Description 07/17/2025 Refill [facility] [address] [facility] [address] [place] [phone] Trista Centeno, GROUT MACHINE OPERATOR Lumbar radiculopathy 06/15/2025 Refill [facility] PAIN MANAGEMENT [address] [phone] Trista Centeno, GROUT MACHINE OPERATOR Lumbar radiculopathy 05/15/2025 Refill [facility] PAIN MANAGEMENT [address] [phone] Trista Centeno, GROUT MACHINE OPERATOR Lumbar radiculopathy from Last 3 Months Family History Medical History Relation Name Comments Cancer Brother Jamarcus Callahan Prostate i n his 50s Cancer Father Acosta Callahan Colon Early Father Acosta Callahan age 72 Arthritis Maternal Grandmother Sandhya Radha Flores d in her 30s. in her 50s. Cancer Mother Ya Callahan Uterine & Glioblastoma Early Mother Ya Callahan age 67 Vision loss Paternal Aunt Melisa nelson Issa Macular Degeneration Arthritis Paternal Grandmother Annika Callahan Old age - hands mostly Vision loss Paternal Grandmother Annika Callahan Mac ular Degeneration Relation Name Status Comments Brother Jamarcus Callahan Father Acosta Callahan Maternal Grandmother Sandhya Garcia Mother Ya Callahan Paternal Aunt Melisa Callahan Issa Alive Paternal Grandmother Annika Callahan Social History Tobacco Use Types Packs/Day Years Used Date Smoking Tobacco: Never Smokeless Tobacco: Never Tobacco Cessation:Counseling Given: Not Answered Alcohol Use Standard Drinks/Week Comments Yes 5 [...] Orientation Straight 03/08/2025 7: 29 AM EDT Last Filed Vital Signs Vital Sign Reading Time Taken Comments Blood Pressure 108/58 12/23/2020 8:00 AM EST Pulse 71 06/02/2024 9:32 AM EDT Temperature 36.4 C (97.6 F) 07/19/2021 11:48 AM EDT Respiratory Rate 17 05/20/2024 8:32 AM EDT Oxygen Saturation 96% 06/02/2024 9:32 AM EDT Inhaled Oxygen Concentration - - Weight 61.6 kg (135 lb 12.8 oz) 03/15/2025 9:12 AM EDT Height 170.2 cm (5' 7.01 ) 03/15/2025 9:12 AM ED T Body Mass Index 21.26 03/15/2025 9:12 AM EDT Plan of Treatment Health Maintenance Due Date Last Done Comments DXA SCAN 1955 COLOGUARD 2000 COLON CANCER SCREENING 5 YEA R SIGMOIDOSCOPY 2000 CT COLONOGRAPHY 2000 FECAL OCCULT BLOOD TEST 2000 FIT Testing (1 year) 2000 ZOSTER VACCINE (1 of 2) 2005 ANNUAL WELLNESS VISIT 09/19/2020 HEPATITIS C SCREENING 09/19/2020 Pneumococcal Vaccine 50+ (2 of 2 - PCV) 08/15/2022 08/15/2021 INFLUENZA VACCINE 05/28/2025 10/08/2024, , 08/15/2021, Additional history exists COVID-19 Vaccine (2023-2 5 season) 2025 10/08/2024, 07/19/2023, 07/17/2022, Additional history exists MAMMOGRAM 06/18/2026 06/18/2024, 05/29, 06/10/2023 COLONOSCOPY 02/05/2031 02/05/2021 COLORECTAL CANCER SCREENING 02/05/2031 TDAP/TD VACCINES (3 - Td or Tdap) 06/05/2033 023, 09/11/2016 Medical Devices Implanted Type Area Woven Label Designer Device Identifier Shelf Expiration Date Model / Serial / Lot Sys Liq Emb [place] 18 Evoh/6pct Vl1.5ml - [id number] Implanted:Qty: 1 on 12/22/2020 by David Martínez MD at [facility] Implant EV3 [place] [employer] [id number] / / [id number] Insurance MEDICARE A & B [facility] Advance Directives Documents on File Type Date Recorded Patient Ceramics Test Engineer Expl anation LIVING WILL - SCAN 09/29/2020 7:49 AM CLAUDIA NG WILL Care Teams Optical Instrument Assembly Supervisor Relationship Specialty Start Date End Date Lupillo Ramos MD [address] [place] [address] [place] [address] PCP - General Family Medicine 04/27/24
--- OUTSIDE RECORDS SUMMARY | 2025-08-06 01:25 | XMS_ITS | Encounter Summary ---
[facility] Organization [facility] Address [address] [place] [address] Care Team Providers Care Senior Human Resources Representative Name Role Phone Lupillo Ramos MD Primary Care Provider [phone]- [phone] Reason for Visit * Reason Comments Med Refill Encounter Details Date Type Department Care Team (Late st Contact Info) Description 07/17/2025 Refill [facility]IN [facility]EMENT [address] [phone] Trista Centeno, TOOL REPAIR TECHNICIAN [address] [place] [address] Lumbar radiculopathy Social History Tobacco Use Types [...] documented in this encounter Care Teams Senior Human Resources Representative Relationship Specialty Start Date End Date Lupillo Ramos MD [address] [place] [address] [place] [address] PCP - General Family Medicine 04/27/24 documented as of this encounter
--- OUTSIDE RECORDS SUMMARY | 2025-08-06 01:25 | XMS_ITS | Encounter Summary ---
Author Organization [employer] ([place], [place], [place], [place]) Address [address] [place] [address] Care Team Providers Care Garland Machine Operator Name Role Phone Unique Desai Primary Care Provider [phone] Encounter Details Date Type Department Care Team (Latest Contact Info) Description 06/24/2025 Travel Social History Tobacco Use Types Packs/Day Years [...] Date Chaim rded Speak language other than Senegalese at home Not on file 11/08/2023 Want [...] Appointment [facility] Breast Imaging [address] [place] [phone] Jamarcus Issa MD [address] [facility] [address] [place] [address] 06/30/2026 10:00 AM EDT Office Visit [facility] [place] [address] [facility] [address] [place] [address] Jamarcus Issa MD [address] [facility] [address] [place] [address] documented as of this encounter Visit Diagnoses Not on filedocumented in this encounter Care Teams Garland Machine Operator Relationship Specialty Start Date End Date Unique Desai [address] [place] [address] [place] [phone] PCP - General 06/10/23 documented as of this encounter
--- OUTSIDE RECORDS SUMMARY | 2025-08-06 01:26 | XMS_ITS | Clinical Summary ---
Author Organization Healthcare Address [address] [phone] Care Team Providers Care In Classroom Tutor Name Role Phone Unavailable Primary Care Provider Unavailabl e Encounters Date Type Department Care Team Description 08/02/2025 Travel from Last 3 Months Social History Tobacco Use Types Packs/Day Years Used Date Smoking Tobacco: Never Assessed Comments Unknown Sex and Gender Information Value Date Recorded Sex Assigned at Not on file Legal Sex Female 4:26 PM EDT Gender Identity Not on file Sexual Orientation Not on file Travel History Travel Start Travel End [place] 07/19/2025 07/31/2025 Plan of Treatment Upcoming Encounters Date Type Department Care Team (Late st Contact Info) Description 08/09/2026 3:30 PM EDT Ovarian Cancer Screening [facility] [address] [facility]rd [place] [address] Health Maintenance Due Date Last Done Comments [facility]-Bone Density Scan 1955 [facility]-Depression Screening 1955 [facility]-Hepatitis C Screening 1955 [facility]-Medicare Annual Wellness (AWV) 1955 [facility]-Infant/Child/Adol SDOH Screenings 1955 [facility]- SDOH Screenings 1973 [facility]-Adult SDOH Screenings 1973 CT Colonography 2000 Colonoscopy 2000 FIT-DNA 2000 FIT 2000 FOBT 2000 Sigmoidoscopy 2000 [facility]-Colorectal Cancer Screening 2000 [facility]-Zoster Vaccines (1 of 2) 2005 [facility]-Pneumococcal Vaccine: 50+ Years (2 of 2 - PCV) 08/15/2022 08/15/2021 [id number] Vaccine ( season) 2025 10/08/2024, 07/19/2023, 07/17/2022, Additional history exists [facility]-Influenza Vaccine (#1) 06/28/202510/08, 07/28/2022, 08/15/2021, Additional history exists [facility]-Breast Cancer Screening 06/24/202705/29, 06/24/2025, 06/18/2024, Additional history exists [facility]-RSV Vaccine: 60+ Years or (1 - 1-dose 75+ series) 2030 [facility]-DTaP,Tdap,and Td Vaccines (3 - Td or Tdap) 06/05/2033 06/05/2023, 09/11/2016 HPV Vaccines Aged Out No longer eligi ble based on patient's age to complete this topic [facility]-HIB Vaccines Aged Out No longer e ligible based on patient's age to complete this topic [facility]-Hepatitis A Vaccines Aged Out No longer eligible based on patient's age to complete this topic [facility]-IPV Vaccines Aged Out No longer e ligible based on patient's age to complete this topic [facility]-Rotavirus Vaccines Aged Out No lo nger eligible based on patient's age to complete this topic Insurance MEDICARE
--- OUTSIDE RECORDS SUMMARY | 2025-08-06 01:26 | XMS_ITS | Encounter Summary ---
Author Organization [employer] ([place], [place], [place], [place]) Address [address] [place] [address] Care Team Providers Care Watchmaking Teacher Name Role Phone Unique Desai Primary Care Provider [phone] Encounter Details Date Type Department Care Team (Late st Contact Info) Description 10/25/2021 Transcribed Document [facility] [place] Family Medicine [facility] [place] [address] ProviderJulia MD [address] [place] [address] Social History Tobacco Use Types Packs/Day Years Used Date Smoking Tobacco: Never Assessed Comments Unknown Sex and Gender Information Value Date Recorded Sex Assigned at Female 02/07/2024 3:45 PM CDT Legal Sex Female 6:13 PM CDT Gender Identity Female 02/07/2024 3:45 PM CDT Sexual Orientation Straight 02/07/2024 3: 45 PM CDT documented as of this encounter Miscellaneous Notes * Cerner Conversion Note - Historical ProviderMD - 10/25/2021 2:20 PM PUBLIC RELATIONS DIRECTOR [facility] Main OR IntraOp Summary Primary Physician: MARILU GIBSON MD-SUR Finalized Date/Time: 10/25/21 15:02:16 Pt. Name: EDVINROBBIE CINDY ISMAEL /Sex: 1955 Female Med Rec #: [id number] Physician: MARILU GIBSON MD-SUR Financial #: [id number] Pt. Type: O Room/Bed: Admit/Disch: 10/25/21 09:09:00 - Institution[place] [facility] [place] Case Attendance Entry 1 Entry 2 Entry 3 Case Attendee MARILU GIBSON Dooley, Carol, RN SOHEILA ROBERTS NA MD-MARCIN Role Performed Surgeon/Proceduralist, Executive Vice President And Chief Financial Officer, First MANAGER MEDICAL WRITING/Nurse Telecom Field Technician First Time In 10/25/21 13:57:00 10/25/21 13:57:00 10/25/21 13:57:00 Time Out 10/25/21 15:15:00 10/25/21 15:15:00 10/25/21 15:15:00 Procedure Breast Lumpectomy Breast Lumpectomy Breast Lumpectomy Lodi Node Map Biop, Lodi Node Map Biop, Lodi Node Map Biop, Breast Biopsy FS Needle Breast Biopsy FS Needle Breast Biopsy FS Needle Localization Localization Localization Other Attendee Superficial Wound Closed By: Last Modified By: Latoya Pina, Latoya Escobar, Latoya Escobar, SARAVANAN 10/25/21 15:01:54 10/25/21 15:01:54 10/25/21 15:01:54 Entry 4 Entry 5 Case Attendee KIT PERALTA PA Moore, Amanda, Press Tender Smoke Signal Role Performed Neon Sign Mechanic, First Scrub, First Time In 10/25/21 13:57:00 10/25/21 13:57:00 Time Out 10/25/21 15:15:00 10/25/21 15:15:00 Procedure Breast Lumpectomy Breast Lumpectomy Lodi Node Map Biop, Lodi Node Map Biop, Breast Biopsy FS Needle Breast Biopsy FS Needle Localization Localization Other Attendee Superficial Wound Closed By: Last Modified By: Latoya Pina, Latoya Escobar RN 10/25/21 15:01:54 10/25/21 15:01:54 [facility] Case Attendance Audit 10/25/21 15:01:54 Carburetor Rebuilder: FRAN Modifier: DOOLEYC 1 <+> Time In 1 <+> Time Out 1 <*> Procedure Breast Lumpectomy Lodi Node Map Biop, Breast Biopsy FS Needle Localization 2 <+> Time In 2 <+> Time Out 2 <*> Procedure Breast Lumpectomy Lodi Node Map Biop, Breast Biopsy FS Needle Localization 3 <+> Time In 3 <+> Time Out 3 <*> Procedure Breast Lumpectomy Lodi Node Map Biop, Breast Biopsy FS Needle Localization 4 <+> Time In 4 <+> Time Out 4 <*> Procedure Breast Lumpectomy Lodi Node Map Biop, Breast Biopsy FS Needle Localization 5 <+> Time In 5 <+> Time Out 5 <*> Procedure Breast Lumpectomy Lodi Node Map Biop, Breast Biopsy FS Needle Localization [facility] IntraOp Case Times Entry 1 Patient In Room Time 10/25/21 13:57:00 Out Room Time 10/25/21 15:15:00 Anesthesia Start Time 10/25/21 13:57:00 Stop Time 10/25/21 15:15:00 Anesthesia Ready 10/25/21 13:57:00 Surgery / Procedure Times Start Time 10/25/21 14:20:00 Stop Time 10/25/21 15:05:00 Last Modified By: Latoya Pina RN 10/25/21 15:01:53 [facility] IntraOp Case Times Audit 10/25/21 15:01:53 Carburetor Rebuilder: FRAN Modifier: DOOLEYC <+> 1 Out Room Time <+> 1 Stop Time <+> 1 Stop Time [facility] IntraOp Cautery Entry 1 ESU Identification Cautery Type Monopolar ESU ID Number [id number] ID Type Hospital Number Cautery Settings Cut Setting 30 Coag Setting 30 ESU Grounding Pad Ground Pad Type Adult Grounding Pad Site Left thigh Grounding Pad Latoya Pina RN Applied By Grounding Pad Site Intact Skin Condition Before Cautery Grounding Pad Site Unchanged Skin Condition After Cautery Last Modified By: Latoya Pina RN 10/25/21 14:24:43 [facility] IntraOp Communication Entry 1 Communication To Family/Significant other Communication By Latoya Pina, SARAVANAN Last Modified By: Latoya Pina RN 10/25/21 14:24:50 [facility] IntraOp Counts Verification Entry 1 Procedure Breast Lumpectomy Lodi Node Map Biop, Breast Biopsy FS Needle Localization Count Info Count Type Sponge, Sharps Counts Verification Baseline/pre-procedure Sequence Count Results Not Applicable Counts Performed By Count Performed By Libby Coburn Scrub (Scrub) Tech Count Performed By Latoya Pina RN (RN) Last Modified By: Latoya Pina RN 10/25/21 14:25:07 [facility] IntraOp Counts Final Entry 1 Procedure Breast Lumpectomy Lodi Node Map Biop, Breast Biopsy FS Needle Localization Final Count Info Count Type Sponge, Sharps Counts Verification Skin Closure/end of Sequence procedure Count Results Correct, surgeon notified Counts Performed By Count Performed By Libby Coburn, Scrub (Scrub) Tech Count Performed By Latoya Pina RN (RN) Last Modified By: Latoya Pina RN 10/25/21 14:25:28 [facility] IntraOp Cultures and Spec Summary Entry 1 Cultrures and Specimens Specimen Ordered: Yes Test(s) Routine/Path-Lab Requested/Final Disposition Last Modified By: Latoya Pina RN 10/25/21 14:25:31 [facility] IntraOp Departure from OR Entry 1 Integumentary Assessment Integumentary WDL Assessment WDL Transfer/Handoff Transfer to PACU Phase I Handoff Method Bedside/Face to face Post-op Transport Stretcher/Gurney Via Patient Transport Latoya Pina RN, Accompanied by SOHEILA ROBERTS NA Last Modified By: Latoya Pina RN 10/25/21 14:25:38 [facility] IntraOp Dressing and Packing Entry 1 Type Dressing Location BREAST Wound Dressing Item Skin Closure Glue Last Modified By: Latoya Pina RN 10/25/21 14:25:44 [facility] IntraOp Fire Risk Assessment Entry 1 Fire Info Surgical Site or 1- Yes Incision Above the Xyphoid Open O2 Source 0- No (Mask or Cannula) Available Ignition 1- Yes (ESU, Laser, Light Source) Fire Risk 2 Assessment Score Fire Score Fire Risk Yes Assessment Complete Fire Risk Latoya Pina phosphoric acid supervisor Verified By Fire Risk 10/25/21 13:57:00 Assessment Verified Date/Time Fire Risk Standard Fire Yes Safety Precautions Followed Last Modified By: Latoya Pina RN 10/25/21 14:25:50 [facility] IntraOp General Case Insulation Blanket Maker 1 Case Information OR OR 03 [facility] Case Level 1 Room Verified Yes Wound Class 1 - Clean Specialty General Anesthesia Type General ASA Class 2 Diagnosis Preop Diagnosis LEFT BREAST CANCER Postop Same As Preop Yes Postop Diagnosis LEFT BREAST CANCER Wound Class Definitions Last Modified By: Latoya Pina RN 10/25/21 14:26:04 [facility] IntraOp Intraoperative Assessment Entry 1 Handoff Method Other Valid History / Yes Physical in Chart Preoperative Yes Checklist Reviewed/Evaluated Allergies Reviewed Yes Patient is Latex No Sensitive Isolation Not applicable Precautions Noted Level of WDL Consciousness (WDL = Alert, Oriented to Person, Place, and Time) Skin Assessment Yes Verified Present Upon IVs Arrival to OR Last Modified By: Latoya Pina RN 10/25/21 14:26:09 [facility] IntraOp Intraoperative Equipment Entry 1 Equipment Intraop Monitoring Electrocardiogram Three lead placement (ECG) Electrode Placement Blood Pressure Non-Invasive BP Device Source Antiembolic Devices Antiembolic Devices Sequential compression device, knee high Antiembolic Device Bilateral Location Scopes Photo/Video Documentation Photo No Video No Last Modified By: Latoya Pina RN 10/25/21 14:26:13 [facility] IntraOp Medication Admin Entry 1 Medication/Irrigant lidocaine 1% w/ epinephrine 1:100,000 30ml vial - [id number] Route of LOCAL INJECTION Administration Dose Dose 20 Unit of Measure ml Volume QS Administered By MARILU GIBSON MD-MARCIN Procedure Irrigation Last Modified By: Latoya Pina RN 10/25/21 14:26:22 [facility] IntraOp Patient Positioning Entry 1 Procedure Breast Biopsy FS Needle Localization Body Position Supine Left Arm Position Secured on padded arm board Right Arm Position Secured on padded arm board Left Leg Position Uncrossed, parallel Right Leg Position Uncrossed, parallel Feet Uncrossed Yes Pressure Points Yes Checked Positioning Devices Arm Board, Safety Strap, Thighs, Pillows Positioned By Latoya Pina RN, KIT PERALTA PA, SOHEILA ROBERTS NA, MARILU GIBSON MD-MARCIN Position Verified Positioning Yes Verified by Anesthesia Positioning Yes Verified by Surgeon Last Modified By: Latoya Pina RN 10/25/21 14:26:27 [facility] IntraOp Sign In Entry 1 Patient, Site, Yes Procedure Identified Surgical Consent Yes Confirmed Relevant Surgical Yes Documents Available Surgical Site Yes Marked by person performing procedure Anesthesia Machine Yes Check Completed Medication Checks Yes Completed Allergies Yes Airway Difficult No Airway/Aspiration Risk Difficult Yes Airway/Aspiration Intervention Equipment Available Blood Loss Risk No Blood Loss Yes Intervention Equipment Prepared and Ready Blood Identifiers Not applicable Verified Per Policy Hypothermia Risk Yes Warming Measures Yes Taken Last Modified By: Latoya Pina RN 10/25/21 14:26:30 [facility] Intra Op Sign Out Entry 1 RN Confirmation Surgical Yes Procedure(s) Identified Instrument, Sponge Yes and Sharps Counts Correct/Documented Equipment Problems N/A Documented Specimen Labeled Yes Correctly Urinary Catheter N/A Documented in IView Wound Yes classification reviewed, verified and updated post case in both the General Case Data and Procedure segments Cervantes Patient Yes Recovery Concerns Reviewed with Anesthesia Provider, Surgeon and RN Cervantes Patient Yes Management Concerns Reviewed with Anesthesia Provider, Surgeon and RN Safety Checklist Yes Elements Complete? RN Sign Out Latoya Pina, RN Signature RN Sign Out 10/25/21 15:15:00 Signature Date/Time Plan of Care Outcome - Fire Risk OUTCOME STATEMENT: Goal met Patient is free from injury related to surgical fire Plan of Care Outcome - Pt Positioning OUTCOME STATEMENT: Goal met Absence of signs and symptoms of positioning injury. Plan of Care Outcome - Skin Prep OUTCOME STATEMENT: Goal met Intraoperative care is consistent with measures to prevent infection Plan of Care Outcome - Xray/Images OUTCOME STATEMENT: N/A Absence of observable signs or symptoms of radiation injury Plan of Care Outcome - Counts OUTCOME STATEMENT: Goal met Absence of signs and symptoms of injury related to extraneous objects Last Modified By: Latoya Pina RN 10/25/21 15:02:06 [facility] Intra Op Sign Out Audit 10/25/21 15:02:06 Carburetor Rebuilder: FRAN Modifier: FRAN <+> 1 RN Sign Out Signature Date/Time [facility] IntraOp Skin Prep Entry 1 Procedure Breast Biopsy FS Needle Localization Prescribed Yes Pre-Surgical Prep Completed Prep Area CHEST SHEET TO SHEET, NECK TO MID ABDOMEN Intraop Prep Integumentary WDL Assessment WDL Prep Agents Chlorhexadine gluconate Prep by Latoya Pina RN Hair Removal Methods No hair removal performed Last Modified By: Latoya Pina RN 10/25/21 14:26:33 [facility] IntraOp Surgical Procedures Entry 1 Entry 2 Procedure Breast Lumpectomy Breast Biopsy FS Needle Lodi Node Map Biopsy Localization Modifiers Additional LEFT BREAST LUMPECTOMY Procedure WITH SENTINEL NODE Description BIOPSY AND NEEDLE LOCALIZATION Primary Procedure Yes No Primary Surgeon MARILU GIBSON, MARILU GIBSON MD-SUR MD-MARCIN Start 10/25/21 14:20:00 10/25/21 14:20:00 Stop 10/25/21 15:05:00 10/25/21 15:05:00 Physician States Cecum Reached Anesthesia Type General General Specialty General General Wound Class 1 - Clean 1 - Clean Last Modified By: Latoya Pina RN Dooley, Carol, RN 10/25/21 15:01:55 10/25/21 15:01:55 [facility] IntraOp Surgical Procedures Audit 10/25/21 15:01:55 Carburetor Rebuilder: OLERENITA Modifier: DOOLEYC <+> 1 Stop <+> 2 Stop [facility] IntraOp Time Out Entry 1 Procedure to be Breast Lumpectomy Performed Lodi Node Map Biop, Breast Biopsy FS Needle Localization Time Out Time Out Pause Time 10/25/21 14:19:00 All activity Yes suspended (unless life threatening emergency) Team Verbally Correct patient Confirms Information identity, Correct side and site are marked, Consent form is present and accurate, Agreement on the procedure to be done, Correct patient position, Relevant images/results properly labeled/appropriately displayed, Confirm antibiotics have been administered, Confirm the skin prep has dried, Confirm prosthesis/implant/devic e is present, Performed in location of procedure after prepped/draped, Performed before each procedure if multiple procedures, Reconcile problems if responses among team members differ Antibiotic Yes Prophylaxis Administered Or In Progress Within the Last 60 Minutes Beta Good N/A Administered Venous Yes Thromboembolism Prophylaxis Required Anticipated Critical Events Surgeon None expected Anesthesia Provider None expected Nursing Assures Sterility of instruments Essential Imaging Yes Labeled and Displayed Last Modified By: Latoya Pina RN 10/25/21 14:27:14 Case Comments <None> Finalized By: Latoya Pina RN Document Signatures Signed By: Latoya Pina RN 10/25/21 15:02 documented in this encounter Plan of Treatment Upcoming Encounters Date Type Department Care Team (Late st Contact Info) Description 06/27/2026 1:00 PM EDT Appointment [facility] Breast Imaging [address] [place] [address] Jamarcus Issa MD [address] [facility] [address] [place] [address] 06/30/2026 10:00 AM EDT Office Visit [facility] [place] [place] [address] Jamarcus Issa MD [address] [facility] [address] [place] [address] documented as of this encounter Visit Diagnoses Not on filedocumented in this encounter Care Teams Watchmaking Teacher Relationship Specialty Start Date End Date Unique Desai [address] [place] [address] [place] [address] PCP - General 06/10/23 documented as of this encounter
--- OUTSIDE RECORDS SUMMARY | 2025-08-06 01:26 | XMS_ITS | Encounter Summary ---
Author Organization [employer] ([place], [place], [place], [place]) Address [address] [place] [address] Care Team Providers Care Boilermaker Apprentice Name Role Phone GuevaraUnique serna Primary Care Provider [phone] Encounter Details Date Type Department Care Team (Late st Contact Info) Description 10/25/2021 Transcribed Document [facility] [place] Family Medicine [facility] [place] [address] ProviderJulia MD [address] [place] [address] Social History Tobacco Use Types [...] Conversion Note - Historical ProviderMD - 10/25/2021 12:25 PM CASINO FLOOR SUPERVISOR Procedural Documentation Entered On: 10/25/2021 12:29 EST Performed On: 10/25/2021 12:25 EST by Renetta Porras chief controller station Documentation Procedure to be Performed : Left sentinel node biopsy Time Out Pause Time : 10/25/2021 12:10 EST All Activity Suspended : Yes Team Verbally Confirms Information : Correct patient identity, Correct side and site are marked, Consent form is present and accurate, Agreement on the procedure to be done, Correct patient position, Relevant images/results properly labeled/appropriately displayed, Confirm the skin prep has dried, Confirm prosthesis/implant/device is present, Performed in location of procedure after prepped/draped, Performed before each procedure if multiple procedures, Reconcile problems if responses among team members differ Procedure Performed : Left sentinel node biopsy Procedure Case Attendee : ROBBI KELLY Procedure Case Attendee Role : technical systems architect Procedure Case Attendee Role 2 : chief controller station Case Attendee 2 : Renetta Porras, Renetta Melgoza, RN - 10/25/2021 12:25 EST Postprocedure Documentation Current Time : 12:25 EST Renetta Porras RN - 10/25/2021 12:25 EST Setrada Level I Post Anesthesia Assessment Estrada I Activity Status : Moves 4 extremities voluntarily or on command Estrada l Respiratory Component : Able to deep breathe and cough freely Estrada I Circulation Component : BP 20% of preanesthetic level Estrada I Consciousness : Fully awake Estrada l Oxygen Saturation : Can maintain > 92% on room air Estrada l Score : 10 Renetta Porras RN - 10/25/2021 12:25 EST Vital Measurements Temperature Source : Oral Peripheral Pulse Rate : 66 bpm Pulse Rhythm : Regular Respiratory Rate : 16 Breaths/Min Systolic Blood Pressure : 144 mmHg (HI) Diastolic Blood Pressure : 77 mmHg Oxygen Saturation : 97 % Oxygen Therapy Mode : Nasal cannula Oxygen Flow Rate : 2 Liter/Min Renetta Porras RN - 10/25/2021 12:25 EST documented in this encounter Plan of Treatment Upcoming Encounters Date Type Department Care Team (Late st Contact Info) Description 06/27/2026 1:00 PM EDT Appointment [facility] Breast Imaging [address] [place] [address] Jamarcus Issa MD [address] [facility] [address] [place] [address] 06/30/2026 10:00 AM EDT Office Visit [facility] [place] [address] [facility] [address] [place] [address] Jamarcus Issa MD [address] [facility] [address] [place] [address] documented as of this encounter Visit Diagnoses Not on filedocumented in this encounter Care Teams Boilermaker Apprentice Relationship Specialty Start Date End Date Unique Desai [address] [place] [address] [address] [address] PCP - General 06/10/23 documented as of this encounter
--- OUTSIDE RECORDS SUMMARY | 2025-08-06 01:26 | XMS_ITS | Encounter Summary ---
Author Organization [employer] ([place], [place], [place], [place]) Address [address] [place] [address] Care Team Providers Care Hand Stamper Name Role Phone Unique Desai Primary Care Provider [phone] Encounter Details Date Type Department Care Team (Late st Contact Info) Description 10/25/2021 Transcribed Document [facility] [place] [facility] [place] [address] ProviderJulia MD [address] [place] [address] Social History Tobacco Use Types [...] Conversion Note - Historical ProviderMD - 10/25/2021 1:10 PM LIBRARY PAGE [facility] Main OR PreOp Summary Primary Physician: MARILU GIBSON MD-SUR Finalized Date/Time: 10/25/21 13:56:03 Pt. Name: EDVINROBBIE CLINTON ISMAEL /Sex: 1955 Female Med Rec #: [id number] Physician: MARILU GIBSON MD-SUR Financial #: [id number] Pt. Type: O Room/Bed: Admit/Disch: 10/25/21 09:09:00 - Institution: [facility] PreOp Case Times Entry 1 In Preop 10/25/21 09:00:00 Ready for Holding n/a Room Patient Ready for 10/25/21 10:35:00 Surgery Patient Out of Preop 10/25/21 13:53:00 Patient Out of n/a Holding Room Last Modified By: NATALIA OSORIO 10/25/21 13:56:01 [facility] [place] Times Audit 10/25/21 13:56:01 Theatrical Trouper: [id number] Modifier: [email or web address] <+> 1 Patient Out of Preop Finalized By: NATALIA OSORIO Document Signatures Signed By: NATALIA OSORIO 10/25/21 13:[address] [facility] Conversion Assistant Winemaker Cerner at 02/13/2023 6:31 PM CDT documented in this encounter Plan of Treatment Upcoming Encounters Date Type Department Care Team (Late st Contact Info) Description 06/27/2026 1:00 PM EDT Appointment [facility] Breast Imaging [address] [place] [address] Jamarcus Issa MD [address] [facility] [address] [place] [address] 06/30/2026 10:00 AM EDT Office Visit [facility] [place] [address] [place] [address] [place] [address] [place] [address] [address] [place] [address] documented as of this encounter Visit Diagnoses Not on filedocumented in this encounter Care Teams Hand Stamper Relationship Specialty Start Date End Date Unique Desai [address] [place] [address] [address] [address] PCP - General 06/10/23 documented as of this encounter
--- OUTSIDE RECORDS SUMMARY | 2025-08-06 01:26 | XMS_ITS | Encounter Summary ---
Author Organization [employer] ([place], [place], [place], [place]) Address [address] [place] [address] Care Team Providers Care Low Voltage Electrician Name Role Phone Unique Desai Primary Care Provider [phone] Encounter Details Date Type Department Care Team (Late st Contact Info) Description 10/25/2021 Transcribed Document [facility] [place] Family Medicine [facility] [place] [address] ProviderJulia MD [address] [place] [address] Social History Tobacco Use Types [...] - Historical ProviderMD - 10/25/2021 2:20 PM SPECIAL CRIMES INVESTIGATOR [facility] Main OR PACU Summary Primary Physician: MARILU GIBSON MD-SUR Finalized Date/Time: 10/25/21 15:59:26 Pt. Name: EDVINROBBIECLINTON /Sex: 1955 Female Med Rec #: [id number] Physician: MARILU GIBSON MD-SUR Financial #: [id number] Pt. Type: O Room/Bed: Admit/Disch: 10/25/21 09:09:00 - [place] [facility] [place] PACU Case Times Entry 1 In PACU I 10/25/21 15:09:00 Ready for PACU 10/25/21 16:00:00 Discharge Discharge from PACU 10/25/21 16:00:00 I Last Modified By: BRITTANEY Mcclendon 10/25/21 15:59:15 Finalized By: BRITTANEY Mcclendon Document Signatures Signed By: BRITTANEY Mcclendon 10/25/21 15:59 Electronically signed by [facility] Conversion Advertising Associate Cerner at 02/13/2023 6:21 PM CDT documented in this encounter Plan of Treatment Upcoming Encounters Date Type Department Care Team (Late st Contact Info) Description 06/27/2026 1:00 PM EDT Appointment [facility] Breast Imaging [address] [place] [address] Jamarcus Issa MD [address] [facility] [address] [place] [address] 06/30/2026 10:00 AM EDT Office Visit [facility] [place] [address] [place] [address] Jamarcus Issa MD [address] [facility] [address] [place] [address] documented as of this encounter Visit Diagnoses Not on filedocumented in this encounter Care Teams Low Voltage Electrician Relationship Specialty Start Date End Date Unique Desai [address] [facility] [place] [place] [address] PCP - General 06/10/23 documented as of this encounter
--- OUTSIDE RECORDS SUMMARY | 2025-08-06 01:26 | XMS_ITS | Encounter Summary ---
Author Organization Healthcare Address [address] [id number] Care Team Providers Care Aba Therapist Name Role Phone Unavailable Primary Care Provider Unavailabl e Encounter Details Date Type Department Care Team (Latest Contact Info) Description 08/02/2025 Travel Social History Tobacco Use Types Packs/Day Years Used Date Smoking Tobacco: Never Assessed Comments Unknown Sex and Gender Information Value Date Recorded Sex Assigned at Not on file Legal Sex Female 4:26 PM EDT Gender Identity Not on file Sexual Orientation Not on file Travel History Travel Start Travel End [place] 07/19/2025 07/31/2025 documented as of this encounter Plan of Treatment Upcoming Encounters Date Type Department Care Team (Late st Contact Info) Description 08/09/2026 3:30 PM EDT Ovarian Cancer Screening [facility] Gynecology [address] [facility] [place] [address] documented as of this encounter Visit Diagnoses Not on filedocumented in this encounter
--- OUTSIDE RECORDS SUMMARY | 2025-08-06 01:26 | XMS_ITS | Encounter Summary ---
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 [address]- Medications What How Much When Instructions Next Dose acetaminophen-oxyCODONE (Percocet 5/ 325 oral tablet) 2 Tablet(s) Oral Every 4 Hours as needed for for pain Duration: 5 Day(s) Max 6 tabs per day. Pickup at [facility]/pharmacy #[id number] Pharmacy Information [facility]/pharmacy #[id number]: [address] [place], [place] [id number] [phone] Take your medications faithfully. Do NOT skip medication. Do NOT stop taking medications without the direction of a physician. Carry a list of your medications with you at all times, and take this medication list with you to your first follow up visit. Report any side effects. Avoid herbal remedies unless discussed with your physician. As part of your treatment plan, your physician may have prescribed a limited course of a controlled substance. This medication may be given to help people with moderate or severe pain or for other medical conditions, but there are risks involved with treatment. Common side effects may include nausea, constipation, drowsiness, sweating, itching, dry mouth, and rash. More serious side effects may include cognitive and motor impairment, like problems with thinking, concentrating, alertness, and movement (e.g. slowed reflexes), and driving and operating heavy machinery can be dangerous. It is important for you to talk to your physician if you have these side effects or questions. These controlled substances can produce physical dependence and be habit-forming if taken for an extended period of time, which means that the body has gotten used to them and may experience withdrawal symptoms if they are abruptly stopped. Withdrawal symptoms can include runny nose, sweating, goose bumps, diarrhea, abdominal cramping, rapid heartbeat, difficulty sleeping, and nervousness. Please dispose of unused and medications per pharmacy guidance. Education Materials General Anesthesia, Adult, Care After This sheet gives you information about how to care for yourself after your procedure. Your health care provider may also give you more specific instructions. If you have problems or questions, contact your health care provider. What can I expect after the procedure? After the procedure, the following side effects are common: ??? Pain or discomfort at the IV site. ??? Nausea. ??? Vomiting. ??? Sore throat. ??? Trouble concentrating. ??? Feeling cold or chills. ??? Weak or tired. ??? Sleepiness and fatigue. ??? Soreness and body aches. These side effects can affect parts of the body that were not involved in surgery. Follow these instructions at home: For at least 24 hours after the procedure: ??? Have a responsible adult stay with you. It is important to have someone help care for you until you are awake and alert. ??? Rest as needed. ??? Do not: ? Participate in activities in which you could fall or become injured. ? Drive. ? Use heavy machinery. ? Drink alcohol. ? Take sleeping pills or medicines that cause drowsiness. ? Make important decisions or sign legal documents. ? Take care of children on your own. Eating and drinking ??? Follow any instructions from your health care provider about eating or drinking restrictions. ??? When you feel hungry, start by eating small amounts of foods that are soft and easy to digest (bland), such as toast. Gradually return to your regular diet. ??? Drink enough fluid to keep your urine pale yellow. ??? If you vomit, rehydrate by drinking water, juice, or clear broth. General instructions ??? If you have sleep apnea, surgery and certain medicines can increase your risk for breathing problems. Follow instructions from your health care provider about wearing your sleep device: ? Anytime you are sleeping, including during daytime naps. ? While taking prescription pain medicines, sleeping medicines, or medicines that make you drowsy. ??? Return to your normal activities as told by your health care provider. Ask your health care provider what activities are safe for you. ??? Take oqby-fip-vghepcf and prescription medicines only as told by your health care provider. ??? If you smoke, do not smoke without supervision. ??? Keep all follow-up visits as told by your health care provider. This is important. Contact a health care provider if: ??? You have nausea or vomiting that does not get better with medicine. ??? You cannot eat or drink without vomiting. ??? You have pain that does not get better with medicine. ??? You are unable to pass urine. ??? You develop a skin rash. ??? You have a fever. ??? You have redness around your IV site that gets worse. Get help right away if: ??? You have difficulty breathing. ??? You have chest pain. ??? You have blood in your urine or stool, or you vomit blood. Summary ??? After the procedure, it is common to have a sore throat or nausea. It is also common to feel tired. ??? Have a responsible adult stay with you for the first 24 hours after general anesthesia. It is important to have someone help care for you until you are awake and alert. ??? When you feel hungry, start by eating small amounts of foods that are soft and easy to digest (bland), such as toast. Gradually return to your regular diet. ??? Drink enough fluid to keep your urine pale yellow. ??? Return to your normal activities as told by your health care provider. Ask your health care provider what activities are safe for you. This information is not intended to replace advice given to you by your health care provider. Make sure you discuss any questions you have with your health care provider. Document Revised: 10/17/2018 Document Reviewed: 05/30/2018 [employer] Patient Education ?? 2020 [employer]. Breast Biopsy, Care After These instructions give you information about caring for yourself after your procedure. Your doctor may also give you more specific instructions. Call your doctor if you have any problems or questions after your procedure. What can I expect after the procedure? After your procedure, it is common to have: ??? Bruising on your breast. ??? Numbness, tingling, or pain near your biopsy site. Follow these instructions at home: Medicines ??? Take tgvf-hpu-snaozdq and prescription medicines only as told by your doctor. ??? Do not drive for 24 hours if you were given a medicine to help you relax (sedative) during your procedure. ??? Do not drink alcohol while taking pain medicine. ??? Do not drive or use heavy machinery while taking prescription pain medicine. Biopsy site care ??? Follow instructions from your doctor about how to take care of your cut from surgery (incision) or your puncture area. Make sure you: ? Wash your hands with soap and water before you change your bandage (dressing). If you cannot use soap and water, use hand demurrage worker. ? Change your bandage as told by your doctor. ? Leave stitches (sutures), skin glue, or skin tape (adhesive strips) in place. They may need to stay in place for 2 weeks or longer. If tape strips get loose and curl up, you may trim the loose edges. Do not remove tape strips completely unless your doctor says it is okay. ??? If you have stitches, keep them dry when you take a bath or a shower. ??? Check your cut or puncture area every day for signs of infection. Check for: ? Redness, swelling, or pain. ? Fluid or blood. ? Warmth. ? Pus or a bad smell. ??? Protect the biopsy area. Do not let the area get bumped. Activity ??? If you had a cut during your procedure, avoid activities that could pull your cut open. These include: ? Stretching. ? Reaching over your head. ? Exercise. ? Sports. ? Lifting anything that weighs more than 3 lb (1.4 kg). ??? Return to your normal activities as told by your doctor. Ask your doctor what activities are safe for you. Managing pain, stiffness, and swelling If told, put ice on the biopsy site to relieve swelling: ??? Put ice in a plastic bag. ??? Place a towel between your skin and the bag. ??? Leave the ice on for 20 minutes, 2???3 times a day. General instructions ??? Continue your normal diet. ??? Wear a good support bra for as long as told by your doctor. ??? Get checked for extra fluid around your lymph nodes (lymphedema) as often as told by your doctor. ??? Keep all follow-up visits as told by your doctor. This is important. Contact a doctor if: ??? You notice any of the following at the biopsy site: ? More redness, swelling, or pain. ? More fluid or blood coming from the site. ? The site feels warm to the touch. ? Pus or a bad smell coming from the site. ? The site breaks open after the stitches or skin tape strips have been removed. ??? You have a rash. ??? You have a fever. Get help right away if: ??? You have more bleeding from the biopsy site. Get help right away if bleeding is more than a small spot. ??? You have trouble breathing. ??? You have red streaks around the biopsy site. Summary ??? After your procedure, it is common to have bruising, numbness, tingling, or pain near the biopsy site. ??? Do not drive or use heavy machinery while taking prescription pain medicine. ??? Wear a good support bra for as long as told by your doctor. ??? If you had a cut during your procedure, avoid activities that may pull the cut open. Ask your doctor what activities are safe for you. This information is not intended to replace advice given to you by your health care provider. Make sure you discuss any questions you have with your health care provider. Document Revised: 04/02/2019 Document Reviewed: 04/02/2019 [employer] Patient Education ?? 2020 [employer]. Emergency Awareness and Preventative Care STROKE is an EMERGENCY Every Minute Counts Act FAST and Check for these signs: FACE Does the face look uneven? ARM Does one arm drift down? SPEECH Does their speech sound strange? TIME Call at any sign of stroke Stroke Risk Factors Atrial Fibrillation (irregular heartbeat) Diabetes Family history of stroke Heart Disease Heavy alcohol use High Blood Pressure High Cholesterol Physical inactivity and obesity Smoking Cigarette Smoking The facts are clear, cigarette smoking will shorten your life. Smoking can cause many illnesses along the way. As a healthcare provider, we recommend that you stop smoking. Assistance with quitting is available by contacting 5-033-KALW-NOW. This is a free resource providing counseling, support, and referral. Or you may contact your personal physician. National Suicide Prevention Lifeline: The National Suicide Prevention Lifeline is a national network of local crisis centers that provides free and confidential emotional support to people in suicidal crisis or emotional distress 24 hours a day, 7 days a week. Don't Wait! Stop a Heart Attack Before it Starts What is a heart attack? A heart attack is damage or to a part of the heart from severely decreased or lack of blood flow to the heart. Over time, arteries can become narrow from the buildup of fat and cholesterol, which is called plaque. The plaque can rupture causing a blood clot to form. When the blood clot forms, the artery can become severely narrowed or completely blocked, causing a heart attack. Heart attack is the leading cause of in the [place]. 85% of muscle damage occurs within the first 2 hours. Delay in the recognition of heart attack symptoms increases the chances of . Know the early symptoms of a heart attack: Nausea Feeling of fullness in chest Jaw Pain Pain that travels down one or both arms Fatigue/being tired Anxiety Back Pain Chest pressure, squeezing, or discomfort Shortness of breath Sweating, or a cold sweat Feeling of impending doom There are unusual signs of a heart attack, too! Women, the elderly, and diabetics may present with atypical symptoms: Fainting/dizziness Weakness Confusion Risk Factors for a Heart Attack Some heart disease risk factors, such as age and family history, cannot be changed. Others, like smoking and lack of exercise, can be changed. Smoking High Cholesterol High Blood Pressure Family History Obesity Age Gender (Males are at higher risk) Lack of Exercise Diabetes Diet Stress Excessive Alcohol Intake If you or someone you know is experiencing the signs and symptoms of a heart attack, DON???T DELAY. Call immediately and seek help. If someone collapses, perform CPR! Do not attempt to drive if you are having symptoms of heart attack. Hands-Only CPR Why Hands-Only CPR? Hands-Only CPR has been shown to be as effective as conventional CPR for cardiac arrests that occur outside of a hospital. Survival depends on immediately receiving CPR from someone nearby. How do you perform Hands-Only CPR? There are two easy steps: Call if you see a teen or adult collapse Push hard and fast in the center of the chest at a beat of 100 beats per minute. Save a life! 4 WAYS TO GET AHEAD OF SEPSIS SEPSIS is a MEDICAL EMERGENCY. Time matters! Infections put you and your family at risk for a life-threatening condition called sepsis. Sepsis is the body's extreme response to an infection. It is life-threatening, and without timely treatment, sepsis can rapidly lead to tissue damage, organ failure, and . Sepsis happens when an infection you already have-in your skin, lungs, urinary tract or somewhere else-triggers a chain reaction throughout your body. 1 PREVENT INFECTIONS Take good care of chronic conditions. Talk to your doctor about getting the recommended vaccines. 2 PRACTICE GOOD HYGIENE Wash your hands frequently. Keep cuts or open sores clean and covered until they are healed. 3 KNOW THE SYMPTOMS Confusion or disorientation Shortness of breath High heart rate Fever, shivering, or feeling very cold Extreme pain or discomfort Clammy or sweaty skin 4 ACT FAST Get medical care IMMEDIATELY if you suspect sepsis or if you have an infection that is not getting better or is getting worse. To learn more about sepsis and how to prevent infections, visit www.cdc.gov/sepsis. Test Results Laboratory or Other Results This Visit (last charted value for your 10/25/2021 visit) Microbiology 10/23/2021 10:10 AM SARS-CoV-2 (COVID19 PCR): Negative Nuclear Medicine 10/25/2021 12:22 PM [facility] [place] [facility] Inj: [facility] [place] [facility] In[facility] Patient Name:CLINTON FRANCOIS I have received this information and was given the opportunity to ask questions. Patient/Press Tool Maker Name: Patient/Press Tool Maker Signature: Relationship to Patient: Clinician/Hospital Press Tool Maker Signature: Date: documented in this encounter Plan of Treatment Upcoming Encounters Date Type Department Care Team (Late st Contact Info) Description 06/27/2026 1:00 PM EDT Appointment [facility] [address] [place] [address] Jamarcus Issa MD [address] [facility] [address] [place] [address] 06/30/2026 10:00 AM EDT Office Visit [facility] [place] [address] [place] [address] Jamarcus Issa MD [address] [facility] [address] [place] [address] documented as of this encounter Visit Diagnoses Not on filedocumented in this encounter Care Teams Roll Forming Supervisor Relationship Specialty Start Date End Date Unique Desai [address] [place] [address] [place] [address] PCP - General 06/10/23 documented as of this encounter
--- OUTSIDE RECORDS SUMMARY | 2025-08-06 01:26 | XMS_ITS | Encounter Summary ---
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 Entered On: 10/25/2021 10:28 EST Performed On: 10/25/2021 10:24 EST by Renetta Porras, RN Vital Measurements Temperature Source : Temporal artery scanning Temperature, Fahrenheit : 97.9 Deg F Clinical Temperature, C : 36.6 Deg C Peripheral Pulse Rate : 66 bpm Pulse Rhythm : Regular Respiratory Rate : 18 Breaths/Min Systolic Blood Pressure : 146 mmHg (HI) Diastolic Blood Pressure : 74 mmHg Oxygen Saturation : 99 % Oxygen Therapy Mode : Room air Renetta Porras RN - 10/25/2021 10:24 EST Pain Assessment Pain Assessment : Initial assessment Pain Scale Used : 0-10 Scale Renetta Porras RN - 10/25/2021 10:24 EST Height and Weight, Clinical Dosing Height Source : Stated Height Entry Format : [place] Height, Feet : 5 ft(Converted to: 152 cm, 60 Inch) Height, Inches : 7 Inch(Converted to: 0 ft 7 Inch, 17.78 cm) Clinical Height : 170.18 cm Weight Source : Standing scale Weight Entry Format : [place] Clinical Dosing Weight : 60.91 kg Weight, Pounds : 134 lb Body Surface Area (BSA) : 1.71 m2 Body Mass Index : 21 kg/m2 [place] Body Weight : 61 kg Renetta Porras RN - 10/25/2021 10:24 EST Health Histories Smoking Status : Never (less than 100 in lifetime; none in last 30 days) Smokeless Tobacco Status : Never Renetta Porras RN - 10/25/2021 10:24 EST Social History (As Of: 10/25/2021 10:28:16 EST) Infectious Disease History Does patient have symptoms of COVID-19? : No Has the Patient Been Tested for COVID-19 in the last 14 days? : Yes, Patient stated results Negative Does the Patient state known exposure to a COVID-19 positive case in the last 14 days? : No Patient Vaccinated for COVID-19 : Fully vaccinated Renetta Porras RN - 10/25/2021 10:24 EST Infectious Disease Risk Screening Grid Cough < 2 wks of unknown origin : NO Cough > 2 weeks : NO Blood in Sputum : NO Fever or self-reported Fever : NO Rash of unknown origin : NO Headache : NO Stiff neck : NO Night Sweats : NO Unexplained Weight Loss : NO Diarrhea (3 episode per day) : NO Renetta Porras RN - 10/25/2021 10:24 EST Physical contact outside [place] in the last 30 days : No Hospitalized in Foreign Country : No Infectious Disease History : Chicken pox/Shingles, Measles, Mumps INF Disease TB Screening Calc : 0 INF Disease Recent Travel Calc : 0 Renetta Porras RN - 10/25/2021 10:24 EST COVID19 PreProcedure Screening Is this an Emergent or Add on Procedure? : No Date PreProcedure COVID-19 test known? : Yes Date of PreProcedure COVID-19 : 10/23/2021 EST Has patient been isolated since the test : Yes Exposed to COVID19 symptoms since test? : No Renetta Porras RN - 10/25/2021 10:24 EST Anesthesia/Transfusion History Family History of Anesthesia Reaction : No prior transfusion(s) Transfusion History : No prior anesthesia Family History of Anesthesia Reaction : None Renetta Porras RN - 10/25/2021 10:24 EST Functional Assessment Functional ADL Evaluation Index EBN Bathing : Independent (2) Dressing : Independent (2) Toileting : Independent (2) Transferring Bed or Chair : Independent (2) Continence : Independent (2) Feeding : Independent (2) Renetta Porras RN - 10/25/2021 10:24 EST ADL Index Score : 12 Renetta Porras RN - 10/25/2021 10:24 EST Advance Directive Patient has Advance Directive *Q : Yes, Advance Directive not with the patient Advance Directive Type : Living will Copy Advance Directive Verified/on Chart : No Renetta Porras RN - 10/25/2021 10:24 EST Spiritual/Cultural Needs Any Spiritual/Cultural Needs or Requests : No Renetta Porras RN - 10/25/2021 10:24 EST [place] Suicide Severity Rating Scale (C-SSRS) CSSRS Past Month Wish to be : No CSSRS Past Month Suicidal Thoughts : No CSSRS Lifetime Suicide Behavior : No Suicide Severity Rating Score : 0 Suicide Severity Rating : No Additional Care Required at this time Renetta Porras RN - 10/25/2021 10:24 EST Psychosocial History Currently in Unsafe Situation : No Renetta Porras RN - 10/25/2021 10:24 EST Teaching/Learning Assessment Barriers To Learning : None evident Individuals Taught : Patient Readiness to Learn : Cooperative Baseline Knowledge of Topic : Good Readiness to Learn : Explanation Learning Style Preferences Patient : Verbal explanation Learning Style Preferences Family : Verbal explanation Renetta Porras RN - 10/25/2021 10:24 EST Education Topics, Periop Preadmission Perioperative Education [place] : Verbalizes understanding Incentive Spirometry : Verbalizes understanding Infection Control : Verbalizes understanding IV's : Verbalizes understanding Renetta Porras RN - 10/25/2021 10:24 EST General Info Want Family/Rep/Phys Notified of Admit : No Emergency Contact #1 : Pritesh Emergency Contact #1 Emergency Contact #1 Relationship : Emergency Contact #2 : / Emergency Contact #2 Phone Number : / Emergency Contact #2 Relationship : / Primary Language : Bhutanese Communication Barrier : None Mechanical Technician Needed : No Renetta Porras RN - 10/25/2021 10:24 EST Mike Scale Mike Sensory Perception : No impairment Mike Moisture : Rarely moist Mike Activity : Walks frequently Mike Mobility : No limitation Mike Nutrition : Excellent Mike Friction and Shear : No apparent problem Mike Score : 23 Renetta Porras RN - 10/25/2021 10:24 EST Sleep Apnea Risk Assmt BiPAP/CPAP Ordered for Home Use : No Hx of Obstructive Sleep Apnea Diagnosis : Yes Age over 50 Years Old : Yes Gender Male : No Renetta Porras RN - 10/25/2021 10:24 EST Pain Scale Intensity : 0 Renetta Porras RN - 10/25/2021 10:24 EST Image 4 - Images currently included in the form version of this document have not been included in the text rendition version of the form. documented in this encounter Plan of Treatment Upcoming Encounters Date Type Department Care Team (Late st Contact Info) Description 06/27/2026 1:00 PM EDT Appointment [facility] [address] [place] [address] Jamarcus Issa MD [address] [facility] [address] [place] [address] 06/30/2026 10:00 AM EDT Office Visit [facility] [place] [address] [facility] [address] [place] [address] Jamarcus Issa MD [address] [facility] [address] [place] [address] documented as of this encounter Visit Diagnoses Not on filedocumented in this encounter Care Teams Acquisition Marketing Manager Relationship Specialty Start Date End Date Unique Desai [address] [facility] [address] PCP - General 06/10/23 documented as of this encounter
--- OUTSIDE RECORDS SUMMARY | 2025-08-06 01:26 | XMS_ITS | Encounter Summary ---
Author Organization [employer] ([place], [place], [place], [place]) Address [address] [place] [address] Care Team Providers Care Industrial Engineering Name Role Phone ThelmaUnique vyas Primary Care Provider [phone] Encounter Details Date Type Department Care Team (Late st Contact Info) Description 10/25/2021 Transcribed Document [facility] Family Medicine [facility] [place] [address] ProviderJulia MD [address] [place] [address] Social History Tobacco Use Types [...] Miscellaneous Notes * Cerner Conversion Note - Julia ProviderMD - 10/25/2021 3:37 PM EDUCATION PROGRAM ASSOCIATE Patient Education Materials Follows:and Gynecology Breast Biopsy, Care After These instructions give [...] these instructions at home: Medicines ??? Take ecya-unt-lsobpgg and prescription medicines only as told by [...] cannot use soap and water, use hand mattress stripper. ? Change your bandage as told by [...] Leave the ice on for 20 minutes, 2?3 times a day. General instructions ??? Continue [...] provider. Document Revised: 04/02/2019 Document Reviewed: 04/02/2019 [facility] Patient Education ? 2020 NotesFirst. Pharmacology General Anesthesia, Adult, Care After This sheet [...] activities are safe for you. ??? Take nklh-ijy-qopudcj and prescription medicines only as told by [...] provider. Document Revised: 10/17/2018 Document Reviewed: 05/30/2018 [employer] Patient Education ? 2020 NotesFirst. documented in this encounter Plan of Treatment Upcoming Encounters Date Type Department Care Team (Late st Contact Info) Description 06/27/2026 1:00 PM EDT Appointment [facility] Breast Imaging [address] [place] [address] Jamarcus Issa MD [address] [place] [phone] 06/30/2026 10:00 AM EDT Office Visit [facility] [place] [address] [place] [address] Jamarcus Issa MD [address] [place] [phone] documented as of this encounter Visit Diagnoses Not on filedocumented in this encounter Care Teams Industrial Engineering Relationship Specialty Start Date End Date Unique Desai [address] [facility] [place] [phone] PCP - General 06/10/23 documented as of this encounter
--- OUTSIDE RECORDS SUMMARY | 2025-08-06 01:26 | XMS_ITS | Encounter Summary ---
Author Organization [employer] ([place], [place], [place], [place]) Address [address] [place] [address] Care Team Providers Care Scientific Research Associate Name Role Phone Unique Desai Primary Care Provider Encounter Details Date Type Department Care Team (Late st Contact Info) Description 10/25/2021 Transcribed Document [facility] Surgery - [email or web address] [email or web address] [place] [address] Arnold Pelayo MD [email or web address] [place] [address] Social History Tobacco Use Types Packs/Day Years Used Date Smoking Tobacco: Never Assessed Comments Unknown Sex and Gender Information Value Date Recorded Sex Assigned at Female 02/07/2024 3:45 PM CDT Legal Sex Female 6:13 PM CDT Gender Identity Female 02/07/2024 3:45 PM CDT Sexual Orientation Straight 02/07/2024 3: 45 PM CDT documented as of this encounter Miscellaneous Notes * Cerner Conversion Note - Arnold Pelayo MD - 10/25/2021 3:51 PM EST DATE OF PROCEDURE: 10/25/2021 SURGEON: Arnold Pelayo MD PREOPERATIVE DIAGNOSIS: Left breast cancer. POSTOPERATIVE DIAGNOSIS: Left breast cancer. PROCEDURES PERFORMED: 1. Left needle localized partial mastectomy. 2. Left axillary sentinel lymph node biopsy. VALLEZ FILTER OPERATOR: Epifanio Echevarria PA-C ANESTHESIA: General. ESTIMATED BLOOD LOSS: Minimal. COMPLICATIONS: None. OPERATIVE INDICATIONS: Ms. Francois is a 66-year-old female patient, who was [facility] evaluation of newly diagnosed invasive left breast cancer. She requested breast conserving surgery. After the risks and benefits of this operative intervention were explained to her, she wished to proceed. OPERATIVE FINDINGS: 1. She had a small breast cancer needle localized on the left. 2. Two deep axillary sentinel lymph nodes were removed and sent to Pathology. DESCRIPTION OF PROCEDURE: After obtaining an informed consent, Ms. Francois was taken to the operating room and placed in supine position. General anesthesia was induced. Her left breast and axilla were prepped and draped in usual sterile fashion. Attention was turned to the needle localization wire. A small skin incision was made adjacent to the wire and dissection down to the breast tissue was achieved using electrocautery. Electrocautery was then used to excise the breast tissue surrounding the needle localization wire circumferentially and with adequate margins. The specimen was removed and oriented with a short stitch superiorly and a long stitch laterally. It was further marked with black ink deep. It was passed off and sent to the Breast [facility] for specimen mammogram. Intraoperative confirmation confirmed that the residual abnormality was contained within the specimen. Meticulous hemostasis was ensured using electrocautery. Attention was then turned to the left axilla where the gamma probe was used to identify the area of greatest uptake. A small skin incision was made overlying that area. Dissection down into the axillary tissue was achieved using electrocautery. Next, the gamma probe was used to identify 2 deep axillary sentinel lymph nodes. They were both removed using electrocautery and surgical clips. They were passed off and sent to Pathology. Meticulous hemostasis was ensured using electrocautery. Both skin incisions were then closed in 2 layers followed by Dermabond. All sponge, needle, and instrument counts were correct at the end of the procedure. There were no complications. Ms. Francois tolerated the procedure well. Finally, Ms. Francois was extubated and taken to PACU in stable condition. /[id number] MD TIMOTHY Vieira/AQ / JRS / MODL /[id number] CC: [facility] documented in this encounter Plan of Treatment Upcoming Encounters Date Type Department Care Team (Late st Contact Info) Description 06/27/2026 1:00 PM EDT Appointment [facility] Breast Imaging [address] [place] [address] Jamarcus Issa MD [address] [place] [address] 06/30/2026 10:00 AM EDT Office Visit [facility] [place] [address] [place] [address] Jamarcus Issa MD [address] [place] [address] documented as of this encounter Visit Diagnoses Not on filedocumented in this encounter Care Teams Scientific Research Associate Relationship Specialty Start Date End Date Unique Desai [address] [place] [address] [place] [phone] PCP - General 06/10/23 documented as of this encounter
--- OUTSIDE RECORDS SUMMARY | 2025-08-06 01:26 | XMS_ITS | Encounter Summary ---
Author Organization [employer] ([place], [place], [place], [place]) Address [address] [place] [address] Care Team Providers Care Metal Tester Name Role Phone Unique Desai Primary Care Provider [phone] Encounter Details Date Type Department Care Team (Latest Contact Info) Description 06/30/2025 Travel Social History Tobacco Use Types Packs/Day [...] Date Chaim rded Speak language other than Indian at home Not on file 11/08/2023 Want [...] Info) Description 06/27/2026 1:00 PM EDT Appointment [facility] Breast Imaging [address] [place] [phone] Jamarcus Issa MD [address] [facility] [address] [place] [address] 06/30/2026 10:00 AM EDT Office Visit [facility] [place] [address] [facility] [address] [place] [address] Jamarcus Issa MD [address] [facility] [address] [place] [address] documented as of this encounter Visit Diagnoses Not on filedocumented in this encounter Care Teams Metal Tester Relationship Specialty Start Date End Date Unique Desai [address] [place] [address] [place] [phone] PCP - General 06/10/23 documented as of this encounter
== END 2025-08-04 23:59 ==
LOC: LAB.DROPOF 08-06 01:24
PROVIDERS: PCP Family Medicine; Visit Provider Family Medicine
DX: C50.919 Malignant neoplasm of unspecified site of unspecified female breast (principal); E78.5 Hyperlipidemia, unspecified; Z85.3 Personal history of malignant neoplasm of breast; Z11.4 Encounter for screening for human immunodeficiency virus [HIV]
CPT/HCPCS: 80053; 80061; 82728; 83540; 83550; 83735; 84443; 85025; 87389

== ENCOUNTER 2025-08-27 08:58 | Outpatient (CLI) | payer MEDICARE, OTHER, SELFPAY ==
--- NOTE | 2025-08-27 09:15 | XR_ITS ---
FINAL REPORT TECHNIQUE: Bone densitometry calculations of the lumbar spine and left hip were obtained. CLINICAL HISTORY: post menopause FINDINGS: Using L1-4, the bone mineral density of the spine is 1.127 g/cm2, corresponding to T-score of 0.7. Using the left hip, the bone mineral density of the femoral neck is 0.731 g/cm2, corresponding to a T-score of -1.0. Using the right hip, the bone mineral density of the femoral neck is 0.737 g/cm2, corresponding to a T-score of -1.0. NOTE: T-score: Standard deviation compared with peak bone mass of young adult mean. *Following the recommendations of the International Society of Bone densitometry, classification of hip BMD is based on the lower of two T-scores; total hip or femoral neck. IMPRESSION: Normal bone mineral density of the lumbar spine and both hips. FRAX was not reported because all of the T-scores are at or above -1.0. Reviewed, Interpreted and Dictated by Diego Rocha MD Transcribed by Maryann Leal Authenticated and [facility]
== END 2025-08-27 23:59 | disposition home or self-care (01) ==
LOC: RAD 08:59
PROVIDERS: PCP Family Medicine; Visit Provider Family Medicine
DX: Z78.0 Asymptomatic menopausal state (principal); Z85.3 Personal history of malignant neoplasm of breast
CPT/HCPCS: 77080